=== PATIENT | male | born 1930 | race Caucasian/White ===

== ENCOUNTER → 2017-06-29 | Outpatient (CLI) | payer MEDICARE, OTHER ==
[2017-06-29 13:10] LABS: ALANINE AMINOTRANSFERASE 22 U/L (21-72); ALBUMIN 3.9 g/dL (3.5-5.0); ALKALINE PHOSPHATASE 71 U/L (38-126); ASPARTATE AMINO TRANSFERASE 18 U/L (17-59); BILIRUBIN,DIRECT 0.5 mg/dL (0.0-0.4); BILIRUBIN,TOTAL 1.5 mg/dL (0.2-1.3); CHOLESTEROL 156.68 mg/dL (0-200); Direct HDL 44 mg/dL (>40); TOTAL PROTEIN 6.9 g/dL (6.3-8.2); TRIGLYCERIDES 109 mg/dL (<150)
[2017-06-29 13:21] LABS: DIRECT LDL 94 mg/dL (<100)
== END ==
LOC: OD 11:46
PROVIDERS: ATTEND Specialist
DX: E13.9 Other specified diabetes mellitus without complications (principal); E78.4 Other hyperlipidemia; E66.9 Obesity, unspecified; I10 Essential (primary) hypertension; I25.2 Old myocardial infarction; I25.10 Atherosclerotic heart disease of native coronary artery without angina pectoris; R00.1 Bradycardia, unspecified; J44.9 Chronic obstructive pulmonary disease, unspecified; N42.9 Disorder of prostate, unspecified; M19.90 Unspecified osteoarthritis, unspecified site; R01.1 Cardiac murmur, unspecified; Z95.1 Presence of aortocoronary bypass graft; Z98.61 Coronary angioplasty status; Z79.899 Other long term (current) drug therapy
CPT/HCPCS: 36415; 80061; 80076; 83036

== ENCOUNTER 2017-08-09 09:54 | Day surgery (SDC) | payer MEDICARE, OTHER ==
[~2017-08-09 09:54] MED LIST: FENTANYL CITRATE INJ/PF 100 MCG/2 ML AMPUL ONE; MIDAZOLAM 2 MG/2 ML INJ ONE
[2017-08-09] MEDS ORDERED: POVIDONE-IODINE 5% OPH PREP SOLN 30 ML ONE (09:58)
[2017-08-09] MEDS ORDERED: BUPIVACAINE HCL 0.75% INJ/PF (7.5 MG/1 ML) 10 ML SDV ONE (09:58)
[2017-08-09] MEDS ORDERED: THROMBIN (BOVINE) TOPICAL 5000 UNIT VIAL ONE (09:58)
[2017-08-09] MEDS ORDERED: TETRACAINE HCL 0.5% OPH SOLN 2 ML ONE (09:58)
[2017-08-09] MEDS ORDERED: LIDOCAINE 1%/EPINEPHRINE INJ 20 ML VIAL ONE (10:03)
[2017-08-09] MEDS ORDERED: PROPOFOL INJ 200 MG/20 ML VIAL IV ONE (11:10)
[2017-08-09] MEDS: NEO/POLYMYX B SULF/DEXAMETH OPH OINTMENT 3.5 GM ONE ×2 (12:02→12:16)
--- NOTE | 2017-08-09 12:33 | [facility] OPERATIVE REPORT E ---
[facility] Operative Report NAME: KURT VILLARREAL AGE: 87Y DATE OF SURGERY: 08/09/2017 ROOM: PREOPERATIVE DIAGNOSIS: Bilateral upper eyelid dermatochalasis with visual field loss. POSTOPERATIVE DIAGNOSIS: Bilateral upper eyelid dermatochalasis with visual field loss. PROCEDURE PERFORMED: Bilateral upper eyelid blepharoplasty. SURGEON: KESHAV CHOWDHURY M.D. ANESTHESIA: Local with MAC. PROCEDURE: Patient was brought to the operating room and tetracaine drops were placed in the eyes. The eyes were sterilely prepped and draped in the usual manner. Under monitored anesthesia care the upper eyelid crease was marked approximately 7 mm superior to the upper lid margin and 0.3 mm forceps were used to estimate the excess upper eyelid skin to be excised on both upper lids. Local anesthesia was administered. This consisted of 3 mL of 1% Xylocaine with epinephrine equally administered in both upper lids and diffused with a Q-Tip. Attention was directed to the left upper lid where the elliptical piece of skin previously marked was removed. Hemostasis was obtained with bipolar cautery. The orbital septum was opened and retroseptal fat was grasped with a hemostat, cut and cauterized. Thrombin was placed on the incision. An identical procedure was performed on the right upper lid. Attention was redirected to the left upper lid where the skin margins were reapproximated with three interrupted 6-0 silk sutures, taking a deep bite of the fascia. Wound closure was completed with a running 6-0 nylon suture. This was accomplished on both upper lids. There was good hemostasis and full closure of the lids at the end of the surgery. Maxitrol ointment was placed at both upper lids. The patient tolerated the procedure well and was sent to the recovery room in good condition. DICTATING PHYSICIAN: KESHVA CHOWDHURY M.D. [id number] PHY#: [id number] ID: [id number] JOB#: [id number] ACCT: [id number] cc:KESHAV CHOWDUHRY M.D. >
--- NOTE | 2017-08-09 12:38 | [facility] DISCHARGE SUMMARY E ---
[facility] Discharge Summary NAME: KURT VILLARREAL AGE: 87Y ADMITTED: 08/09/2017 DISCHARGED: 08/09/2017 FINAL DIAGNOSIS: Bilateral upper eyelid dermatochalasis with visual field loss. HOSPITAL COURSE: The patient is an 87-year-old gentleman who underwent uneventful upper eyelid blepharoplasty. He will be discharged to home. He was instructed to keep the head of his bed up 45 degrees, to use the blepharoplasty ice pack 10 minutes out of every hour while awake for the first 24 hours, to use Maxitrol ointment twice a day, and to follow up in my office in 1 week. DICTATING PHYSICIAN: KESHAV CHOWDHURY M.D. [id number] PHY#: [id number] ID: [id number] JOB#: [id number] ACCT: [id number] cc:KESHAV CHOWDHURY M.D. >
== END 2017-08-09 13:12 | disposition home or self-care (01) ==
LOC: SC 09:54
PROVIDERS: ATTEND Ophthalmology
PROC: 080N0ZZ Alteration of Right Upper Eyelid, Open Approach (ICD-10-PCS; 2017-08-09)
PROC: 080P0ZZ Alteration of Left Upper Eyelid, Open Approach (ICD-10-PCS; principal; 2017-08-09 11:00)
DX: H02.831 Dermatochalasis of right upper eyelid (principal); H02.834 Dermatochalasis of left upper eyelid; H53.40 Unspecified visual field defects; E11.9 Type 2 diabetes mellitus without complications; E78.00 Pure hypercholesterolemia, unspecified; K21.9 Gastro-esophageal reflux disease without esophagitis; I10 Essential (primary) hypertension; Z87.891 Personal history of nicotine dependence; Z79.82 Long term (current) use of aspirin; Z79.84 Long term (current) use of oral hypoglycemic drugs; Z79.02 Long term (current) use of antithrombotics/antiplatelets; Z79.899 Other long term (current) drug therapy; I25.2 Old myocardial infarction; Z85.46 Personal history of malignant neoplasm of prostate
CPT/HCPCS: 82962; 15823; J2250; J3490 ×5; J3010; J2704; 103

== ENCOUNTER 2017-12-24 05:44 | Inpatient (IN) | payer MEDICARE, OTHER ==
[2017-12-24] MEDS ORDERED: FUROSEMIDE INJ/PF 40 MG/4 ML SDV IV ONE (05:51)
--- NOTE | 2017-12-24 05:56 | ER Document Report ---
Doctor's Note Notes: 12/24/17 05:54 I performed a quick triage evaluation the patient. Patient is an 87-year-old male presents with complaint of difficulty breathing. He woke up tonight with difficulty breathing. Called the months. When paramedics arrived his oxygen saturation was in the 80s and the place him on CPAP. He said he had some wheezing and some crackles. They give him some breathing treatments. Also given some nitro. Says chest tightness has improved. His breathing is improving with the CPAP machine. He does have history of coronary disease. He has had stents placed as well as coronary bypass surgery. Current bypass was performed approximately 7 years ago in [place]. His local manager quality systems is Dr. Ralph. On exam patient has crackles throughout his lung quintero. I suspect he most likely has pulmonary edema based on his lung auscultation. He is Mild distress at this time. Is able speak in 4 5 word sentences. He has been placed on BiPAP. I have ordered Lasix as well as Nitropaste as well as cardiac enzymes. Patient does have a left bundle branch block. I do not see a left bundle branch block is previous EKG however, his chest tightness is improved and currently he looks clinically stable and therefore we will wait for his cardiac enzymes to come back. Dictation of this chart was performed using voice recognition software; therefore, there may be some unintended grammatical errors.
[2017-12-24 06:05] LABS: ABSOLUTE BASOPHILS # (AUTO) 0.1 10^3/uL (0.0-0.2); ABSOLUTE EOSINOPHILS # (AUTO) 0.5 10^3/uL (0.0-0.6); ABSOLUTE LYMPHOCYTES (AUTO) 5.5 10^3/uL (0.5-4.7); ABSOLUTE MONOCYTES (AUTO) 1.2 10^3/uL (0.1-1.4); ABSOLUTE NEUT (AUTO) 9.8 10^3/uL (1.7-8.2); BASOPHILS % (AUTO) 0.8 % (0-2); HEMATOCRIT 46.5 % (37.9-51.0); HEMOGLOBIN 15.3 g/dL (13.5-17.0); MEAN CORPUSCULAR HEMOGLOBIN 30.6 pg (27.0-33.4); MEAN CORPUSCULAR VOLUME 93 fl (80-97); MONOCYTES % (AUTO) 6.9 % (3-13); PLATELET COUNT 346 10^3/uL (150-450); RED BLOOD COUNT 5.01 10^6/uL (4.35-5.55); RED CELL DISTRIBUTION WIDTH 13.6 % (11.5-14.0); SEGMENTED NEUTROPHILS % (AUTO) 57.3 % (42-78); TOTAL CELLS COUNTED % (AUTO) 100 %; WHITE BLOOD COUNT 17.1 10^3/uL (4.0-10.5)
[2017-12-24] MEDS ORDERED: NITROGLYCERIN 2% OINTMENT 1 GM PACKET TP ONE (06:16)
[2017-12-24] MEDS ORDERED: ASPIRIN 325 MG TABLET PO ONE (06:17)
[2017-12-24 06:34] LABS: CREATINE KINASE MB 1.97 ng/mL (<4.55); TROPONIN I 0.029 ng/mL
--- NOTE | 2017-12-24 06:43 | ER Document Report ---
ED Cardiac - General Chief Complaint: Shortness Of Breath Stated Complaint: DIFFICULTY BREATHING Time Seen by Provider: 12/24/17 05:51 Notes: The patient is a 87 yo male, PMHx CAD w/ stent placement, presents with 2 hours of bilateral chest pressure and increased shortness of breath that started at 4 AM today. Patient was diaphoretic when EMS arrived. He received 2 sublingual nitro by EMS and placed on CPAP with resolution of his chest pain and improvement of his respiratory status. [facility] and he is no longer having any shortness of breath. His logistics analytics manager is Dr. Mckeon. Patient denies leg swelling, hemoptysis, fevers, back pain, nausea, vomiting, abdominal pain, numbness, tingling, cough or headache. TRAVEL OUTSIDE OF THE [place] IN LAST 30 DAYS: No - Related Data Allergies/Adverse Reactions: hydrocodone [Hydrocodone] Allergy (Intermediate, Verified 02/06/16 07:22) n/v, hives itching oxycodone HCl [From Percocet] Allergy (Intermediate, Verified 02/06/16 07:22) hives itching, n/v Past Medical History - General Information source: Patient, Emergency Med Personnel - Social History Smoking Status: Unknown if Ever Smoked Family History: Reviewed & Not Pertinent - Past Medical History Cardiac Medical History: Reports: Hx Coronary Artery Disease, Hx Heart Attack - 1996, Hx Hypercholesterolemia - meds x 15 years, Hx Hypertension - meds x 15 years Denies: Hx Atrial Fibrillation, Hx Congestive Heart Failure, Hx Peripheral Vascular Disease, Hx Pulmonary Embolism, Hx Heart Murmur Pulmonary Medical History: Reports: Hx COPD, Hx Pneumonia Denies: Hx Asthma, Hx Bronchitis, Hx Respiratory Failure, Hx Sleep Apnea, Hx Tuberculosis Neurological Medical History: Denies: Hx Cerebrovascular Accident, Hx Seizures Endocrine Medical History: Denies: Hx Graves' Disease, Hx Hyperthyroidism, Hx Hypothyroidism Renal/ Medical History: Denies: Hx Benign Prostatic Hyperplasia, Hx End Stage Renal Disease, Hx Kidney Stones, Hx Peritoneal Dialysis Malignancy Medical History: Denies Hx Leukemia, Denies Hx Lung Cancer GI Medical History: Reports: Hx Gastroesophageal Reflux Disease - meds x 10+ years. Denies: Hx Crohn's Disease, Hx Hepatitis, Hx Hiatal Hernia, Hx Irritable Bowel, Hx Liver Failure, Hx Pancreatitis, Hx Ulcer Musculoskeltal Medical History: Reports Hx Arthritis, Denies Hx Fibromyalgia, Denies Hx Multiple Sclerosis, Denies Hx Muscular Dystrophy Psychiatric Medical History: Denies: Hx Bipolar Disorder, Hx Dementia, Hx Depression, Hx Post Traumatic Stress Disorder, Hx Schizophrenia Traumatic Medical History: Denies: Hx Fractures Infectious Medical History: Denies: Hx Hepatitis, Hx HIV Past Surgical History: Reports: Hx Appendectomy, Hx Coronary Artery Bypass Graft - 1996, 2 vessel, Hx Open Heart Surgery - stents CABG. Denies: Hx Bowel Surgery, Hx Cholecystectomy, Hx Colostomy, Hx Gastric Bypass Surgery, Hx Herniorrhaphy, Hx Pacemaker, Hx Tonsillectomy - Immunizations Hx Diphtheria, Pertussis, Tetanus Vaccination: No Hx Pneumococcal Vaccination: 10/10/13 Review of Systems - Review of Systems Notes: REVIEW OF SYSTEMS: CONSTITUTIONAL: -fevers, -chills EENT: -eye pain, -difficulty swallowing, -nasal congestion CARDIOVASCULAR: +chest pain, -syncope. RESPIRATORY: -cough, +SOB GASTROINTESTINAL: -abdominal pain, -nausea, -vomiting, -diarrhea GENITOURINARY: -dysuria, -hematuria MUSCULOSKELETAL: -back pain, -neck pain SKIN: -rash or skin lesions. HEMATOLOGIC: -easy bruising or bleeding. LYMPHATIC: -swollen, enlarged glands. NEUROLOGICAL: -altered mental status or loss of consciousness, -headache, - neurologic symptoms PSYCHIATRIC: -anxiety, -depression. ALL OTHER SYSTEMS REVIEWED AND NEGATIVE. Physical Exam - Vital signs Vitals: Resp Pulse Ox 28 H 99 12/24/17 05:45 12/24/17 05:45 - Notes Notes: PHYSICAL EXAMINATION: GENERAL: In no acute distress. HEAD: Atraumatic, normocephalic. EYES: Pupils equal round and reactive to light, extraocular movements intact, sclera anicteric, conjunctiva are normal. ENT: nares patent, oropharynx clear without exudates. Moist mucous membranes. NECK: Normal range of motion, supple without lymphadenopathy LUNGS: B/L crackles in bases of B/L lungs. No tachypnea on BiPap. Coarse breath sounds diffusely. HEART: Tachycardia, regular rhythm. ABDOMEN: Soft, nontender, normoactive bowel sounds. No guarding, no rebound. No masses appreciated. EXTREMITIES: Normal range of motion, no pitting or edema. No cyanosis. NEUROLOGICAL: Cranial nerves grossly intact. Normal speech. Normal sensory and motor exams. PSYCH: Normal mood, normal affect. SKIN: Warm, Dry, normal turgor, no rashes or lesions noted. Course - Re-evaluation Re-evalutation: Patient seen immediately on arrival due to respiratory distress, diaphoresis and chest pain that resolved after 2 nitro. He was placed on BiPAP and his breathing improved greatly. He has evidence of bilateral pneumonia or pulmonary edema with a leukocytosis. No recent hospitalizations, so CAP antibiotics started. Pt's EKG shows a IVCD/LBBB without Scarbossa criteria and his first troponin is negative. Repeat EKG shows improvement of his tachycardia and no STEMI. HEART score is 6 (1 for concerning story, 1 for EKG changes, 2 for age, 2 for risk factors, 0 for troponin). Pt was transitioned from BiPap to 2L nasal cannula and his oxygenation remained normal. He became slightly hypotensive to 89/65 (MAP 73) after nitro and IV Lasix and he was provided with gentle hydration. Suspect he may also have a component of CHF that has not been diagnosed due to the elevated pro-BNP and rales on exam. Pt has a history of NIDDM and his BG is in the 400's, but he does not have an anion gap. His last A1C was 12.0%, so suspect that the hyperglycemia is chronic in nature. His PMD is Dr. Mccoy and his logistics analytics manager is Dr. Ralph. Pt requires admission for further evaluation and treatment of his bilateral pneumonia and chest pain. 12/24/17 09:[address] Thomas (Hospitalist) and will admit patient as Inpatient to [facility]. - Vital Signs Vital signs: Temp Pulse Resp BP Pulse Ox 97.4 F 22 H 141/83 H 94 12/24/17 05:46 12/24/17 13:11 12/24/17 13:11 12/24/17 13:11 - Laboratory Result Diagrams: 12/24/17 05:55 12/24/17 08:08 Laboratory results interpreted by me: 12/24/17 12/24/17 12/24/17 05:55 05:55 08:08 WBC 17.1 H Absolute Neutrophils 9.8 H Absolute Lymphocytes 5.5 H VBG pH BUN 23 H Glucose 465 H* Lactic Acid Direct Bilirubin 0.5 H Creatine Kinase 248 H NT-Pro-B Natriuret Pep 1210 H 12/24/17 12/24/17 08:08 08:08 WBC Absolute Neutrophils Absolute Lymphocytes VBG pH 7.29 L BUN Glucose Lactic Acid 2.2 H Direct Bilirubin Creatine Kinase NT-Pro-B Natriuret Pep - Diagnostic Test Radiology reviewed: Image reviewed, Reports reviewed Radiology results interpreted by me: CXR: Moderate bilateral lower lobar pneumonia/atelectasis. Recommend CR/CT surveillance including at 7-12 weeks following initiation of clinically warranted therapy. - EKG Interpretation by Me Rate: Tachycardia [place]/QRS: IVCD Voltage: Consistant with LVH When compared to previous EKG there are: No significant change Critical Care Note - Critical Care Note Total time excluding time spent on procedures (mins): 35 Discharge - Discharge Clinical Impression: Bilateral pneumonia Qualifiers: Pneumonia type: due to unspecified organism Lung location: lower lobe of lung Qualified Code(s): J18.1 - Lobar pneumonia, unspecified organism Chest pain Qualifiers: Chest pain type: unspecified Qualified Code(s): R07.9 - Chest pain, unspecified Respiratory failure Qualifiers: Chronicity: acute Respiratory failure complication: hypoxia Qualified Code(s): J96.01 - Acute respiratory failure with hypoxia Sepsis Qualifiers: Sepsis type: sepsis due to unspecified organism Qualified Code(s): A41.9 - Sepsis, unspecified organism Pulmonary edema Qualifiers: Chronicity: acute Qualified Code(s): J81.0 - Acute pulmonary edema Condition: Stable Disposition: ADMITTED INPATIENT Admitting Provider: Aury Thomas Unit Admitted: Telemetry
--- NOTE | 2017-12-24 07:11 | RADIOLOGY REPORT (SQ) ---
EXAM DESCRIPTION: CHEST SINGLE VIEW CLINICAL HISTORY: 87 years Male, diffiuclty breathing COMPARISON: 07/26/2016 NUMBER OF VIEWS/TECHNIQUE: 1/AP LIMITATIONS: None. FINDINGS: Moderate mixed patchy and streaky opacity/layered effusion of both lower lung quintero, mild interstitial markings, mild enlargement of the cardiac silhouette, median sternotomy, and intact bony thorax. IMPRESSION: Moderate bilateral lower lobar pneumonia/atelectasis. Recommend CR/CT surveillance including at 7-12 weeks following initiation of clinically warranted therapy.
[2017-12-24] MEDS ORDERED: AZITHROMYCIN INJ 500 MG VIAL IV ONE (07:17)
[2017-12-24] MEDS ORDERED: CEFTRIAXONE INJ 1000 MG VIAL IV ONE (07:17)
[2017-12-24 08:39] LABS: VENOUS BLOOD BASE EXCESS -3.3 mmol/L; VENOUS BLOOD HCO3 23.7 mmol/L (20-32); VENOUS BLOOD PH 7.29 (7.30-7.42)
[2017-12-24 08:49] LABS: ALANINE AMINOTRANSFERASE 38 U/L (21-72); ALBUMIN 4.2 g/dL (3.5-5.0); ALKALINE PHOSPHATASE 73 U/L (38-126); ANION GAP 15 (5-19); ASPARTATE AMINO TRANSFERASE 54 U/L (17-59); BILIRUBIN,DIRECT 0.5 mg/dL (0.0-0.4); BILIRUBIN,TOTAL 0.8 mg/dL (0.2-1.3); BLOOD UREA NITROGEN 23 mg/dL (7-20); CALCIUM 9.9 mg/dL (8.4-10.2); CARBON DIOXIDE 22 mmol/L (22-30); CHLORIDE 102 mmol/L (98-107); CREATINE KINASE 248 U/L (55-170); POTASSIUM 4.6 mmol/L (3.6-5.0); SODIUM 139.1 mmol/L (137-145); TOTAL PROTEIN 7.4 g/dL (6.3-8.2)
[2017-12-24 08:58] LABS: GLUCOSE 465 mg/dL (75-110)
[2017-12-24] MEDS ORDERED: NORMAL SALINE 1000 ML 1,000 ML IV ONE (09:05)
--- NOTE | 2017-12-24 09:52 | EKG REPORT ---
SEVERITY:- ABNORMAL ECG - SINUS OR ECTOPIC ATRIAL TACHYCARDIA NONSPECIFIC INTRAVENTRICULAR CONDUCTION DELAY PROBABLE LEFT VENTRICULAR HYPERTROPHY ANTERIOR Q WAVES, POSSIBLY DUE TO LVH : Confirmed by: Bennett Mendiola MD 24-Dec-2017 09:51:59
--- NOTE | 2017-12-24 09:52 | EKG REPORT ---
SEVERITY:- ABNORMAL ECG - SINUS RHYTHM NONSPECIFIC INTRAVENTRICULAR CONDUCTION DELAY PROBABLE LVH WITH SECONDARY REPOL ABNRM ANTERIOR Q WAVES, POSSIBLY DUE TO LVH : Confirmed by: Bennett Mendiola MD 24-Dec-2017 09:51:36
[2017-12-24] MEDS ORDERED: CLOPIDOGREL BISULFATE 300 MG TABLET PO SCH (10:00)
[2017-12-24] MEDS ORDERED: PROMETHAZINE HCL INJ 25 MG/1 ML VIAL IV PRN (10:13)
[2017-12-24] MEDS ORDERED: ACETAMINOPHEN 325 MG TABLET PO PRN (10:13)
[2017-12-24] MEDS ORDERED: ONDANSETRON HCL INJ/PF 4 MG/2 ML SDV IV PRN (10:13)
[2017-12-24] MEDS ORDERED: IPRATROPIUM/ALBUTEROL 0.5-2.5 MG/3 ML AMPUL NEB PRN (10:13)
--- NOTE | 2017-12-24 11:48 | RADIOLOGY REPORT (SQ) ---
EXAM DESCRIPTION: CT CHEST WITH COMPLETED DATE/TIME: 12/24/2017 11:04 am REASON FOR STUDY: Hypoxemia. R/O PE COMPARISON: None. TECHNIQUE: CT scan of the chest performed using helical scanning technique with dynamic intravenous contrast injection. Images reviewed with lung, soft tissue and bone windows. Reconstructed coronal and sagittal MPR images reviewed. All images stored on PACS. All CT scanners at this facility use dose modulation, iterative reconstruction, and/or weight based d osing when appropriate to reduce radiation dose to as low as reasonably achievable (ALARA). [facility]: Dose Right [facility]: CareDose [facility]: Dose Right [facility]: Teradose 4D [facility]: [employer] CONTRAST TYPE AND DOSE: contrast/concentration: Isovue 370.00 mg/ml; Total Contrast Delivered: 80.0 ml; Total Saline Delivered: 55.0 ml RENAL FUNCTION: BUN 23 creatinine 1.1 RADIATION DOSE: CT Rad equipment meets quality standard of care and radiation dose reduction techniq ues were employed. CTDIvol: 19.5 mGy. DLP: 809 mGy-cm. . LIMITATIONS: Patient motion. FINDINGS: LUNGS AND PLEURA: Diffuse interstitial edema. Small bilateral pleural effusions. HILAR AND MEDIASTINAL STRUCTURES: No identified masses or abnormal nodes. HEART AND VASCULAR STRUCTURES: Cardiomegaly. No pericardial effusion. No filling defect in the cent ral pulmonary arteries. HARDWARE: None in the chest. UPPER ABDOMEN: Gallstones. Chronic pancreatitis. THYROID AND OTHER SOFT TISSUES: No masses. No adenopathy. BONES: No significant finding. OTHER: No other significant finding. IMPRESSION: Congestive heart failure. TECHNICAL DOCUMENTATION: JOB ID: [id number] Quality ID # [id number]: Final reports with documentation of one or more dose reduction techniques (e.g., Au tomated exposure control, adjustment of the mA and/or kV according to patient size, use of iterative reconstruction technique) 2010 [employer]- All Rights Reserved Reading location - IP/workstation name: [email or web address]
[2017-12-24] MEDS ORDERED: DEXTROSE 40% GEL 15 GM TUBE PO PRN ×2 (13:10)
[2017-12-24] MEDS ORDERED: DEXTROSE 50%-WATER 25 GM/50 ML DISP.SYRIN IV PRN ×2 (13:10)
[2017-12-24] MEDS ORDERED: INSULIN LISPRO 100 UNIT/ML 3 ML VIAL SUBCUT PRN (13:10)
[2017-12-24] MEDS ORDERED: GLUCAGON,HUMAN RECOMB 1 MG INJ IM PRN (13:10)
--- NOTE | 2017-12-24 15:46 | PDOC CONSULTATION ---
Consultation Consult Date: 12/24/17 Consult reason:: Shortness of breath with elevated cardiac biomarkers History of Present Illness Admission Date/PCP: 12/24/17 10:06 MAJOR CUMMINGS MD History of Present Illness: KURT VILLARREAL is a 87 year old male with past medical history of coronary artery disease status post coronary artery bypass grafting around 1996 per patient, history of PCI around 3 years after her last bypass, diabetes mellitus , hypertension, morbid obesity comes in with complaints of sudden onset shortness of breath that started early this morning associated with dizziness. Patient claims that he got sweaty and that is when his called EMS and he was brought into the ER. In the ER he had initial set of biomarkers negative and subsequently a second set of cardiac enzymes was positive. He also had a CAT scan of his chest done which did not reveal any pulmonary embolism. Patient seen at bedside and he denies any chest pain and claims that his breathing is much better now after he got some Lasix. He claims that he is fairly active at his age and does not usually get any chest pain or acute shortness of breath. He has not had any nitroglycerin for many years. He is and lives with his . He used to smoke before but quit many years ago. He drinks alcohol occasionally. He denies history of coronary artery disease in his parents. In the past he was following with Dr. Mckeon but has not seen him in quite a while per patient. Past Medical History Cardiac Medical History: Reports: Coronary Artery Disease, Myocardial Infarction - 1996, Hyperlipidema - meds x 15 years, Hypertension - meds x 15 years Denies: Atrial Fibrillation, Congestive Heart Failure, Peripheral Vascular Disease, Pulmonary Embolism, Heart Murmur Pulmonary Medical History: Reports: Chronic Obstructive Pulmonary Disease (COPD) Denies: Asthma, Bronchitis, Respiratory Failure, Sleep Apnea, Tuberculosis Neurological Medical History: Denies: Seizures Endocrine Medical History: Reports: Diabetes Mellitus Type 1, Obesity Denies: Hyperthyroidism, Hypothyroidism Renal/ Medical History: Denies: End Stage Renal Disease Malignancy Medical History: Denies: Breast Cancer, Cervical Cancer, Leukemia, Lung Cancer, Ovarian Cancer GI Medical History: Reports: Gastroesophageal Reflux Disease - meds x 10+ years Denies: Crohn's Disease, Hepatitis, Hiatal Hernia Musculoskeltal Medical History: Reports: Arthritis Denies: Fibromyalgia Psychiatric Medical History: Denies: Bipolar Disorder, Dementia, Depression, Post Traumatic Stress Disorder Hematology: Denies: Anemia, Hemophilia, Sickle Cell Disease Infectious Medical History: Denies: HIV Past Surgical History Past Surgical History: Reports: Appendectomy, Cardiac Catheterization, Coronary Artery Bypass Graft - 1996, 2 vessel Denies: Cholecystectomy, Colostomy, Gastric Bypass Surgery, Herniorrhaphy, Pacemaker, Tonsillectomy Social History Lives with: Spouse/Significant other Smoking Status: Former Smoker Frequency of Alcohol Use: Occasional Hx Recreational Drug Use: No Hx Prescription Drug Abuse: No Family History Family History: Reviewed & Not Pertinent Parental Family History Reviewed: Yes Children Family History Reviewed: Yes Sibling(s) Family History Reviewed.: Yes Medication/Allergy Home Medications: Aspirin [Aspirin EC] 81 mg PO DAILY 12/24/17 Clopidogrel Bisulfate [Plavix 75 mg Tablet] 75 mg PO DAILY 12/24/17 Fexofenadine HCl [Leandra] 180 mg PO DAILY 12/24/17 Glipizide [Glucotrol Xl] 10 mg PO DAILY 12/24/17 Metformin HCl [Metformin HCl ER] 1,000 mg PO DAILY 12/24/17 Pantoprazole Sodium [Protonix] 40 mg PO DAILY 12/24/17 Simvastatin 10 mg PO QHS 12/24/17 Telmisartan [Micardis 40 mg Tablet] 40 mg PO DAILY 12/24/17 Allergies/Adverse Reactions: hydrocodone [Hydrocodone] Allergy (Intermediate, Verified 02/06/16 07:22) n/v, hives itching oxycodone HCl [From Percocet] Allergy (Intermediate, Verified 02/06/16 07:22) hives itching, n/v Review of Systems Cardiovascular: PRESENT: orthropnea Respiratory: PRESENT: dyspnea Physical Exam Vital Signs: Temp Pulse Resp BP Pulse Ox 97.4 F 22 H 141/83 H 94 12/24/17 05:46 12/24/17 13:11 12/24/17 13:11 12/24/17 13:11 Intake & Output 12/23/17 12/24/17 12/25/17 06:59 06:59 06:59 Weight 104.326 kg General appearance: PRESENT: other - Here is a morbidly obese patient in no acute respiratory distress at this time. Respiratory exam: PRESENT: other - Bilateral air entry heard with no wheezing. Decreased entry at lung bases. GI/Abdominal exam: PRESENT: other - Obese abdomen. Results Laboratory Results: 12/24/17 11:58 Lactic Acid 2.5 H 12/24/17 12/24/17 11:58 11:58 Creatine Kinase 500 H Troponin I 8.030 Impressions: Chest CT 12/24/17 00:00 IMPRESSION: Congestive heart failure. Chest X-Ray 12/24/17 05:52 IMPRESSION: Moderate bilateral lower lobar pneumonia/atelectasis. Recommend CR/CT surveillance including at 7-12 weeks following initiation of clinically warranted therapy. Assessment & Plan - Diagnosis (5) Uncontrolled diabetes mellitus Qualifiers: Diabetes mellitus type: other specified (including ANIA) Is this a current diagnosis for this admission?: Yes - Notes Notes: Plan of CARE Patient with previous history of coronary artery disease status post bypass grafting came in with likely flash pulmonary edema which has responded to diuretic therapy. Patient's EKG and biomarkers reviewed. Will treat as acute non-ST elevation AR and will recommend loading patient with Plavix in addition to aspirin, high intensity statin, nitrate and beta-jamal as tolerated by his blood pressure. Recommend systemic anticoagulation with therapeutic Lovenox/ heparin. Patient will need better control of his diabetes. Case discussed with expediter clerk Dr. Dickerson who has graciously accepted the patient for transfer to [facility] for consideration of coronary angiography. Patient and his daughter educated about plan of care and they are agreeable with transfer to [facility] for further care. Patient wants to follow with us in the outpatient clinic in a few weeks after his discharge from [facility]. - Time Time Spent: 30 to 50 Minutes
--- NOTE | 2017-12-24 15:50 | HISTORY AND PHYSICAL E ---
History and Physical NAME: KURT VILLARREAL : 1930 AGE: 87Y ADMITTED: 12/24/2017 ROOM: ED22 CHIEF COMPLAINT: Shortness of breath. HISTORY OF PRESENT ILLNESS: The patient is an 87-year-old male who had a past medical history of diabetes and hypertension. The patient came to the emergency room. He had a history of diabetes, hypertension, congestive heart failure, and he follows with . He also had CABG done in the past. The patient came to the emergency room today complaining of shortness of breath, cough, fever, and he had chest pain. The patient had a chest x-ray in the emergency room which showed bilateral infiltrates consistent with bilateral pneumonia as well as also congestive heart failure. He received Lasix in the emergency room and as well as also IV fluids. His blood pressure was low. When the patient was seen the first time by ambulance, his saturation was in the 80s and he was placed on BiPAP. He feels much better. He came here, he received Lasix as well as breathing treatment, and he has improved. Now, he is on 6 L and saturating in the mid 90s, and lying very comfortably. He denies any nausea or vomiting or edema. REVIEW OF SYSTEMS: Twelve systems were reviewed and are unremarkable except for history of present illness. PAST MEDICAL HISTORY: Diabetes, hypertension, coronary artery disease status post CABG, hyperlipidemia. PAST SURGICAL HISTORY: CABG. ALLERGIES: SHE IS ALLERGIC TO HYDROCODONE AND OXYCODONE. MEDICATIONS: Currently, he is on: 1. Azithromycin. 2. Ceftriaxone. 3. Colace. 4. Lorazepam. FAMILY HISTORY: Unremarkable. SOCIAL HISTORY: Nonsmoker, nondrinker. Lives at home. PHYSICAL EXAM: GENERAL: Patient is lying in bed, not in distress. VITAL SIGNS: His heart rate is 95, respiratory rate 24, blood pressure 124/79, saturation 97% on 6 L. Afebrile. HEAD: Head normocephalic and atraumatic. EYES: Pupils round, reactive to the light and accommodation bilaterally. Extraocular movements intact. NOSE: No discharge from the nose. EARS: No discharge from the ears. MUCOUS MEMBRANES: Intact. NECK: Supple. No increased JVD, no thyromegaly, no lymphadenopathy. CARDIOVASCULAR: Normal S1, S2. Regular rate and rhythm. RESPIRATORY: Bilateral wheezing and crackles. ABDOMEN: Obese. Bowel sounds active. No rebound, no guarding, no organomegaly. MUSCULOSKELETAL: With +1 edema. NEUROLOGICAL EXAM: Awake, alert. SKIN: There is no rash. HEMOLYTIC/LYMPHOCYTIC: No anemia. No easy bruising. VASCULAR: Peripheral bulges palpable bilaterally. LABORATORY DATA: White blood count 17, hemoglobin is 15.3. Blood gases, pH is 7.29, pCO2 is 50. Sodium 139, potassium 4.6, creatinine is 1.0, blood glucose 465. Chest x-ray: Bilateral infiltrates consistent with bilateral pneumonia. ASSESSMENT: 1. Bilateral pneumonia. 2. Acute on chronic hypoxic respiratory failure, possible chronic obstructive pulmonary disease. 3. Congestive heart failure. 4. Coronary artery disease status post coronary artery bypass grafting, chest pain. 5. Diabetes, poorly controlled. Blood sugar is around 465. PLAN: 1. Will admit the patient to Telemetry. 2. Diet: Cardiac diet. 3. Activity: Bed rest. 4. Medications: Antibiotics ceftriaxone and azithromycin. Nebulizer with DuoNeb. 5. Deep vein thrombosis prophylaxis. 6. Gastrointestinal prophylaxis. 7. Serial cardiac enzymes. 8. Considering CT scan with IV contrast to rule out pulmonary embolus. 9. Will need also echocardiogram he had recently with Dr. Ralph. Will contact Dr. Ralph on Tuesday. CODE STATUS: Full code. DICTATING PHYSICIAN: RENEE MARTINEZ M.D. [id number] PHY#: [id number] ID: [id number] JOB#: [id number] ACCT: [id number] cc:LYLY MEAD M.D. > WILLIAM
--- NOTE | 2017-12-24 16:24 | EKG REPORT ---
SEVERITY:- ABNORMAL ECG - SINUS RHYTHM PROBABLE LEFT ATRIAL ABNORMALITY NONSPECIFIC INTRAVENTRICULAR CONDUCTION DELAY MINIMAL ST DEPRESSION, LATERAL LEADS : Confirmed by: Bennett Mendiola MD 24-Dec-2017 16:23:59
[2017-12-24 16:53] VITALS: BP 101/62
[2017-12-24] MEDS ORDERED: LANSOPRAZOLE 15 MG TAB.RAP.DR PO SCH (17:00)
[2017-12-24] MEDS ORDERED: DOCUSATE SODIUM 100 MG/10 ML UDC PO SCH (18:00)
[2017-12-24] MEDS ORDERED: METOPROLOL TARTRATE 25 MG TABLET PO SCH (22:00)
[2017-12-24] MEDS ORDERED: ZOLPIDEM TARTRATE 5 MG TABLET PO SCH (22:00)
[2017-12-25] MEDS ORDERED: CEFTRIAXONE SODIUM 1,500 MG in NORMAL SALINE 100 ML IV SCH (10:00)
[2017-12-25] MEDS ORDERED: CEFTRIAXONE SODIUM 1,500 MG in DEXTROSE 5%-WATER 100 ML IV SCH (10:00)
[2017-12-25] MEDS ORDERED: AZITHROMYCIN INJ 500 MG VIAL IV ONE (10:21)
--- NOTE | 2017-12-26 15:11 | TRANSFER SUMMARY E ---
Transfer Summary NAME: KURT VILLARREAL : 1930 AGE: 87Y ADMITTED: 12/24/2017 TRANSFERRED: 12/24/2017 ADMISSION DIAGNOSES: 1. Shortness of breath, rule out NH. 2. Significant history of coronary artery disease status post stent placement. 3. Hypertension. 4. Congestive heart failure. 5. Diabetes. DISCHARGE DIAGNOSES: 1. Non-stemi. 2. Flash pulmonary edema. 3. Congestive heart failure. 4. Hypertension. 5. Diabetes. 6. Significant coronary artery disease status post stent placement. IMAGING: CT scan of the chest showed pulmonary edema. BRIEF HOSPITAL COURSE: The patient is an 87-year-old male who has a past medical history significant for coronary artery disease status post multiple stent placements, hypertension, diabetes. The patient came to the emergency room with a chief complaint of shortness of breath. He had shortness of breath and bilateral chest pressure, and the patient came to the emergency room. In the emergency room, he was hypoxic. His saturation in the 80's. The patient was placed on BiPAP. He received Lasix 40 mg IV in ER. Also, initially, he got IV fluids. After the patient was evaluated, he was feeling well. The patient came to the emergency room with a chief complaint of chest pain associated with shortness of breath. The initial set of cardiac enzymes were unremarkable. However, the repeated cardiac enzyme is increased to 8. He had echo recently in Dr. Mckeon's office. Unfortunately, we do not have that in our records here at the hospital. No echo was done. EKG was unremarkable. The patient and Lasix, as I mentioned. His symptoms resolved. He was titrated from BiPAP to 6 L of oxygen and tolerated it very well and he had mild shortness of breath. Because of elevated troponin, Cardiology was consulted and he was seen by Dr. Greenwood and recommended urgent echo and transfer him to [facility]. Dr. Greenwood recommended loading him with Plavix, beta jamal, and Lovenox full dose, and transfer him to [facility] for further intervention. He may need a cardiac catheterization. Unfortunately, it cannot be done today, because the patient had a CT scan of the chest with IV contrast, which showed pulmonary edema. There is no PE. Currently, the patient transfer being arranged to [facility]. Accepting physician is lead applier, Dr. Dickerson. PHYSICAL EXAMINATION UPON TRANSFER: GENERAL: The patient is lying in bed, comfortable, not in distress. VITAL SIGNS: Blood pressure is 141/83, respiratory rate 22, heart rate 104. HEENT: Normocephalic, atraumatic. Pupils are round and reactive to light and accommodation bilaterally. Extraocular movements intact. Ears: Tympanic membranes intact bilaterally. No discharge from the ears. No discharge from the nose. NECK: Supple. No increased JVD. No thyromegaly. No lymphadenopathy. CARDIOVASCULAR: Normal S1 and S2. Regular rate and rhythm. No murmur. No gallop. RESPIRATORY: Bilateral crackles. ABDOMEN: Soft. MUSCULOSKELETAL: With +1 edema. DIAGNOSTIC DATA: Labs: White blood count was 17, hemoglobin was 1.0. Blood glucose was 465. Chest x-ray: Possible bilateral lower lobe pneumonia. CT scan showed pulmonary edema. TRANSFER ORDER: Transfer patient to [facility] under service of Dr. Dickerson. MEDICATIONS: Currently, the patient is on: 1. Plavix dose 600 mg p.o. daily. 2. Lovenox full dose mg/kg twice a day. 3. Ceftriaxone 1.5 grams IV q. 24 hours. 4. Azithromycin. 5. Metoprolol 12.5 mg twice a day. 6. Lansoprazole. 7. Insulin. 8. . We will continue his home medications: 1. Micardis. 2. Aspirin. 3. He is also on Glucotrol XL. Will hold metformin. DIET: Cardiac diet. ACTIVITY: Bed rest. DICTATING PHYSICIAN: RENEE MARTINEZ M.D. [id number] PHY#: [id number] ID: [id number] JOB#: [id number] ACCT: [id number] cc:RENEE MARTINEZ M.D. >
== END 2017-12-24 18:00 | disposition short-term general hospital (02) | DRG 280 ==
LOC: ER 05:44 → EH 10:06
PROVIDERS: ADMIT Family Medicine; ATTEND Family Medicine
PROC: 5A09557 Assistance with Respiratory Ventilation, Greater than 96 Consecutive Hours, Continuous Positive Airway Pressure (ICD-10-PCS; principal; 2017-12-24)
DX: I21.4 Non-ST elevation (NSTEMI) myocardial infarction (principal); J96.21 Acute and chronic respiratory failure with hypoxia; E08.65 Diabetes mellitus due to underlying condition with hyperglycemia; I11.0 Hypertensive heart disease with heart failure; I50.9 Heart failure, unspecified; E66.01 Morbid (severe) obesity due to excess calories; E78.5 Hyperlipidemia, unspecified; J44.9 Chronic obstructive pulmonary disease, unspecified; I25.10 Atherosclerotic heart disease of native coronary artery without angina pectoris; Z95.1 Presence of aortocoronary bypass graft; Z68.31 Body mass index [BMI] 31.0-31.9, adult; Z87.891 Personal history of nicotine dependence; I25.2 Old myocardial infarction; Z79.84 Long term (current) use of oral hypoglycemic drugs; Z88.5 Allergy status to narcotic agent; Z79.82 Long term (current) use of aspirin
CPT/HCPCS: 36415; 71045; 71260; 80053; 82550; 82553; 82803; 82962; 83605; 83880; 84484; 85025; 87040; 93005; 93010; 94660; 96361; 96365; 96368; 96375; 99291; J0456; J0696; J1940; J3490; J7030

== ENCOUNTER → 2018-03-08 | Outpatient (CLI) | payer MEDICARE, OTHER ==
--- NOTE | 2018-03-08 16:56 | XCELERA REPORT ---
[address] [address] Transthoracic Echocardiogram Report Name: KURT VILLARREAL Age: 87 yrs Gender: Male : 1930 Patient Status: Outpatient Patient Location: Study Date: 03/08/2018 10:34 AM Height: 69 in Weight: 213 lb BSA: 2.1 m2 Procedure: A two-dimensional transthoracic echocardiogram with color flow and Doppler was performed. The study was technically difficult with many images being suboptimal in quality. Reason For Study: MURMUR History: MURMUR. Ordering Physician: SWATHI SARABIA Performed By: Haydee Baeza Interpretation Summary The left ventricle is moderately dilated. There is normal left ventricular wall thickness. LV EF is 35% Left ventricular systolic function is moderately reduced. The inferior and posterior wall akiinetic.The anterior wall not seen in apical 2 chamber views.The mid anterior wall and the rest of the LV augustin are moderately hypokinetic The overall LVEF is 35%. The right ventricle is not well visualized secondary to technical limitations The left atrium is mildly dilated. There is no evidence of mitral valve prolapse. There is no vegetation seen on the mitral valve. There is no mitral valve stenosis. There is a moderate amount of mitral regurgitation There is no aortic valve stenosis No aortic regurgitation is present. There is no tricuspid stenosis. There is a trace amount of tricuspid regurgitation Right ventricular systolic pressure is normal. RVSP IS 23 MM OF hG WITH RA MEAN OF 10. There is no pulmonic valvular stenosis. The aortic root is normal size. There is no pericardial effusion. MMode/2D Measurements & Calculations RVDd: 2.6 cm LVIDd: 6.2 cm FS: 7.0 % EPSS: 2.0 cm IVSd: 1.1 cm LVIDs: 5.8 cm EDV(Teich): 195.9 ml LVPWd: 1.1 cm ESV(Teich): 166.0 ml EF(Teich): 15.3 % Ao root diam: 3.4 cm LVOT diam: 2.6 cm Ao root area: 9.3 cm2 LVOT area: 5.1 cm2 Doppler Measurements & Calculations MV E max amrita: MV dec slope: Ao V2 max: LV V1 max P.8 cm/sec 454.4 cm/sec2 171.6 cm/sec 2.1 mmHg MV A max amrita: MV dec time: Ao max PG: LV V1 max: 85.9 cm/sec 0.21 sec 11.8 mmHg 72.7 cm/sec MV E/A: 1.1 DEBORAH(V,D): 2.2 cm2 LV dP/dt: 597.2 mmHg/s MR max amrita: PA V2 max: TR max amrita: 559.0 cm/sec 81.6 cm/sec 181.5 cm/sec MR max PG: PA max P.7 mmHg TR max P.0 mmHg 13.2 mmHg Left Ventricle The left ventricle is moderately dilated. There is normal left ventricular wall thickness. LV EF is 35%. Left ventricular systolic function is moderately reduced. The inferior and posterior wall akiinetic.The anterior wall not seen in apical 2 chamber views.The mid anterior wall and the rest of the LV augustin are moderately hypokinetic The overall LVEF is 35%. There is no thrombus. Right Ventricle The right ventricle is not well visualized secondary to technical limitations. Atria Right atrium not well visualized secondary to technical limitations. The left atrium is mildly dilated. Mitral Valve There is no evidence of mitral valve prolapse. There is no vegetation seen on the mitral valve. There is no mitral valve stenosis. There is a moderate amount of mitral regurgitation. Aortic Valve The aortic valve is trileaflet. There is no aortic valvular vegetation. There is no aortic valve stenosis. There is no LVOT obstruction. No aortic regurgitation is present. Tricuspid Valve There is no tricuspid stenosis. There is a trace amount of tricuspid regurgitation. Right ventricular systolic pressure is normal. RVSP IS 23 MM OF hG WITH RA MEAN OF 10. Pulmonic Valve There is no pulmonic valvular stenosis. There is no pulmonic valvular regurgitation. Great Vessels The aortic root is normal size. Effusions There is no pericardial effusion. : SWATHI SARABIA > Swathi Sarabia
== END ==
LOC: SP 10:26
PROVIDERS: ATTEND Specialist
DX: R01.1 Cardiac murmur, unspecified (principal)
CPT/HCPCS: 93306

== ENCOUNTER 2018-04-11 15:34 | Day surgery (SDC) | payer MEDICARE, OTHER ==
[~2018-04-11 15:34] MED LIST changes: +DIPHENHYDRAMINE HCL 50 MG/ML VIAL ONE; +EPINEPHRINE INJ 1 MG/10 ML DISP.SYRIN ONE; -FENTANYL CITRATE INJ/PF 100 MCG/2 ML AMPUL ONE; +FLUMAZENIL INJ 0.5 MG/5 ML VIAL ONE; +GLUCAGON,HUMAN RECOMB 1 MG INJ ONE; -MIDAZOLAM 2 MG/2 ML INJ ONE; +NALOXONE HCL INJ/PF 0.4 MG/1 ML SDV ONE; +ONDANSETRON HCL INJ/PF 4 MG/2 ML SDV ONE
[2018-04-11] MEDS: MIDAZOLAM 2 MG/2 ML INJ ONE ×2 (17:08→17:14)
[2018-04-11] MEDS: FENTANYL CITRATE INJ/PF 100 MCG/2 ML AMPUL ONE ×2 (17:10→17:12)
--- NOTE | 2018-04-11 17:44 | Operative Report ---
Operative Report DATE OF SURGERY: 04/11/18 Operative Report: Pre-op diagnosis: Colon cancer screening and reflux disease Post-op diagnosis: 1. Normal EGD 2. Multiple polyps in the ascending, descending, sigmoid colon, and rectum 3. Sigmoid diverticulosis Surgery: Upper endoscopy with biopsy and Colonoscopy and polypectomy Medications: Versed 1.5mg, Fentanyl 50mcg IV push Tissue removed: Antral and gastric body biopsy, multiple colon polyps Procedure: After informed consent obtained from patient, patient's pharynx was sprayed with Hurricane and conscious sedation was achieved. The upper endoscope was then inserted into the esophagus under direct vision and advanced into the stomach and further into the duodenum. Detailed examination of the duodenum, stomach and the esophagus was then performed. A digital rectal examination was performed and this was unremarkable. The colonoscope was inserted into the rectum and advanced to the cecum. The appendiceal orifice and the terminal ileum were both identified. The mucosa was examined into details as the colonoscope was slowly pulled out of the patient. The endoscope was retroflexed in the rectum. Patient tolerated the procedure well. Findings Esophagus: Normal with the Z line at 38 cm Stomach: Normal Duodenum: Normal Cecum: Normal Ascending colon: 7 mm polyp removed with a hot snare Transverse colon: Normal Descending colon: 8 mm sessile polyp removed with a hot snare Sigmoid colon: Three 5-7 mm polyps removed with a hot snare. Multiple diverticuli Rectum: 7 mm polyp removed with a snare. Hemorrhoids were also identified. Plan: Await pathology. Does not need further routine colonoscopy OPERATION: .
[2018-04-11 18:40] VITALS: BP 123/72
== END 2018-04-11 18:50 | disposition home or self-care (01) ==
LOC: END 15:34
PROVIDERS: ATTEND Internal Medicine Gastroenterology
DX: K29.50 Unspecified chronic gastritis without bleeding (principal); D12.4 Benign neoplasm of descending colon; D12.2 Benign neoplasm of ascending colon; D12.7 Benign neoplasm of rectosigmoid junction; Z12.11 Encounter for screening for malignant neoplasm of colon; K21.9 Gastro-esophageal reflux disease without esophagitis; K57.30 Diverticulosis of large intestine without perforation or abscess without bleeding; K64.8 Other hemorrhoids
CPT/HCPCS: 43239; 45385; 82962; 88342 ×2; 88305 ×2; J2250; J3010; J0171; J1200; J1610; J2310; J2405; J3490

== ENCOUNTER 2018-04-17 12:32 | Observation (INO) | payer MEDICARE, OTHER ==
--- NOTE | 2018-04-17 13:10 | ER Document Report ---
ED Medical Screen (RME) - General Chief Complaint: Chest Pain Stated Complaint: CHEST PAIN Time Seen by Provider: 04/17/18 13:08 Notes: RAPID MEDICAL EVALUATION DISCLOSURE I have seen this patient as part of a Rapid Medical Evaluation and, if applicable, placed any initially appropriate orders. The patient will be seen and fully evaluated, including a full history and physical exam, by a provider ( in Main ED or Fast Track) when a room becomes available. 87-year-old male PMH coronary stent acute NH here with complaints of right- sided nonradiating chest pain that started approximately 6 hours ago. He states "I always have shortness of breath" and states it is unchanged from baseline. He did not have any lightheadedness diaphoresis nausea vomiting. He is concerned he may be having another heart attack. He did not take anything today for the symptoms. EXAM CTAB Mildly bradycardic TRAVEL OUTSIDE OF THE [place] IN LAST 30 DAYS: No - Related Data Allergies/Adverse Reactions: hydrocodone [Hydrocodone] Allergy (Intermediate, Verified 04/17/18 13:08) n/v, hives itching oxycodone HCl [From Percocet] Allergy (Intermediate, Verified 04/17/18 13:08) hives itching, n/v Past Medical History - Social History Chew tobacco use (# tins/day): No Frequency of alcohol use: None Drug Abuse: None - Past Medical History Cardiac Medical History: Reports: Hx Coronary Artery Disease, Hx Heart Attack - 1996, 2017, Hx Hypercholesterolemia - meds x 15 years, Hx Hypertension - meds x 15 years Denies: Hx Atrial Fibrillation, Hx Congestive Heart Failure, Hx Peripheral Vascular Disease, Hx Pulmonary Embolism, Hx Heart Murmur Pulmonary Medical History: Reports: Hx COPD, Hx Pneumonia Denies: Hx Asthma, Hx Bronchitis, Hx Respiratory Failure, Hx Sleep Apnea, Hx Tuberculosis Neurological Medical History: Denies: Hx Cerebrovascular Accident, Hx Seizures Endocrine Medical History: Reports: Hx Diabetes Mellitus Type 1. Denies: Hx Graves' Disease, Hx Hyperthyroidism, Hx Hypothyroidism Renal/ Medical History: Denies: Hx Benign Prostatic Hyperplasia, Hx End Stage Renal Disease, Hx Kidney Stones, Hx Peritoneal Dialysis Malignancy Medical History: Denies Hx Leukemia, Denies Hx Lung Cancer GI Medical History: Reports: Hx Gastroesophageal Reflux Disease - meds x 10+ years. Denies: Hx Crohn's Disease, Hx Hepatitis, Hx Hiatal Hernia, Hx Irritable Bowel, Hx Liver Failure, Hx Pancreatitis, Hx Ulcer Musculoskeltal Medical History: Reports Hx Arthritis, Denies Hx Fibromyalgia, Denies Hx Multiple Sclerosis, Denies Hx Muscular Dystrophy Psychiatric Medical History: Denies: Hx Bipolar Disorder, Hx Dementia, Hx Depression, Hx Post Traumatic Stress Disorder, Hx Schizophrenia Traumatic Medical History: Denies: Hx Fractures Infectious Medical History: Denies: Hx Hepatitis, Hx HIV Past Surgical History: Reports: Hx Appendectomy, Hx Cardiac Catheterization, Hx Coronary Artery Bypass Graft - 1996, 2 vessel, Hx Open Heart Surgery - stents CABG. Denies: Hx Bowel Surgery, Hx Cholecystectomy, Hx Colostomy, Hx Gastric Bypass Surgery, Hx Herniorrhaphy, Hx Pacemaker, Hx Tonsillectomy - Immunizations Hx Diphtheria, Pertussis, Tetanus Vaccination: No Physical Exam - Vital signs Vitals: Temp Pulse Resp BP Pulse Ox 98.1 F 48 L 18 100/52 L 94 04/17/18 12:47 04/17/18 12:47 04/17/18 12:47 04/17/18 12:47 04/17/18 12:47 Course - Vital Signs Vital signs: Temp Pulse Resp BP Pulse Ox 98.1 F 48 L 18 100/52 L 94 04/17/18 12:47 04/17/18 12:47 04/17/18 12:47 04/17/18 12:47 04/17/18 12:47
[2018-04-17 13:41] LABS: ABSOLUTE BASOPHILS # (AUTO) 0.1 10^3/uL (0.0-0.2); ABSOLUTE EOSINOPHILS # (AUTO) 0.4 10^3/uL (0.0-0.6); ABSOLUTE LYMPHOCYTES (AUTO) 1.3 10^3/uL (0.5-4.7); ABSOLUTE MONOCYTES (AUTO) 0.8 10^3/uL (0.1-1.4); ABSOLUTE NEUT (AUTO) 6.5 10^3/uL (1.7-8.2); BASOPHILS % (AUTO) 0.8 % (0-2); EOSINOPHILS % (AUTO) 4.4 % (0-6); HEMATOCRIT 37.9 % (37.9-51.0); HEMOGLOBIN 13.1 g/dL (13.5-17.0); LYMPHOCYTES % (AUTO) 14.1 % (13-45); MEAN CORPUSCULAR HEMOGLOBIN 31.3 pg (27.0-33.4); MEAN CORPUSCULAR HGB CONC 34.7 g/dL (32.0-36.0); MEAN CORPUSCULAR VOLUME 90 fl (80-97); MONOCYTES % (AUTO) 8.8 % (3-13); PLATELET COUNT 213 10^3/uL (150-450); RED BLOOD COUNT 4.19 10^6/uL (4.35-5.55); RED CELL DISTRIBUTION WIDTH 13.4 % (11.5-14.0); SEGMENTED NEUTROPHILS % (AUTO) 71.9 % (42-78); TOTAL CELLS COUNTED % (AUTO) 100 %
[2018-04-17 13:55] LABS: ALANINE AMINOTRANSFERASE 22 U/L (21-72); ALBUMIN 3.9 g/dL (3.5-5.0); ALKALINE PHOSPHATASE 57 U/L (38-126); ANION GAP 10 (5-19); ASPARTATE AMINO TRANSFERASE 17 U/L (17-59); BILIRUBIN,DIRECT 0.3 mg/dL (0.0-0.4); BILIRUBIN,TOTAL 1.1 mg/dL (0.2-1.3); BLOOD UREA NITROGEN 14 mg/dL (7-20); CALCIUM 9.8 mg/dL (8.4-10.2); CARBON DIOXIDE 29 mmol/L (22-30); CHLORIDE 102 mmol/L (98-107); GLUCOSE 181 mg/dL (75-110); POTASSIUM 4.5 mmol/L (3.6-5.0); SODIUM 141.3 mmol/L (137-145); TOTAL PROTEIN 7.1 g/dL (6.3-8.2)
--- NOTE | 2018-04-17 14:34 | ER Document Report ---
ED Cardiac - General Chief Complaint: Chest Pain Stated Complaint: CHEST PAIN Time Seen by Provider: 04/17/18 13:08 Notes: The patient is a 87-year-old male, past medical history CAD with stents, CHF, presents with 6 hours of right upper chest pain that is different from his prior chest pain events. He describes it as a squeezing and is intermittent. 3 months ago, he was transferred to [facility] for elevated troponins. According to him, at [facility], his heart cath showed occlusion of some arteries, but his director distribution was unable to place a stent. He followed up with his primary director distribution, Dr. Mckeon, and was told that he should have a pacemaker. He scheduled the appointment for June. Patient denies lightheadedness, new shortness of breath, swelling, fevers, cough, radiation of the pain, back pain, headache, syncope, nausea, vomiting or abdominal pain. TRAVEL OUTSIDE OF THE [place] IN LAST 30 DAYS: No - Related Data Allergies/Adverse Reactions: hydrocodone [Hydrocodone] Allergy (Intermediate, Verified 04/17/18 13:08) n/v, hives itching oxycodone HCl [From Percocet] Allergy (Intermediate, Verified 04/17/18 13:08) hives itching, n/v Past Medical History - General Information source: Patient - Social History Smoking Status: Former Smoker Chew tobacco use (# tins/day): No Frequency of alcohol use: None Drug Abuse: None Family History: Reviewed & Not Pertinent Patient has suicidal ideation: No Patient has homicidal ideation: No - Past Medical History Cardiac Medical History: Reports: Hx Coronary Artery Disease, Hx Heart Attack - 1996, 2017, Hx Hypercholesterolemia - meds x 15 years, Hx Hypertension - meds x 15 years Denies: Hx Atrial Fibrillation, Hx Congestive Heart Failure, Hx Peripheral Vascular Disease, Hx Pulmonary Embolism, Hx Heart Murmur Pulmonary Medical History: Reports: Hx COPD, Hx Pneumonia Denies: Hx Asthma, Hx Bronchitis, Hx Respiratory Failure, Hx Sleep Apnea, Hx Tuberculosis Neurological Medical History: Denies: Hx Cerebrovascular Accident, Hx Seizures Endocrine Medical History: Reports: Hx Diabetes Mellitus Type 1, Hx Diabetes Mellitus Type 2. Denies: Hx Graves' Disease, Hx Hyperthyroidism, Hx Hypothyroidism Renal/ Medical History: Denies: Hx Benign Prostatic Hyperplasia, Hx End Stage Renal Disease, Hx Kidney Stones, Hx Peritoneal Dialysis Malignancy Medical History: Denies Hx Leukemia, Denies Hx Lung Cancer GI Medical History: Reports: Hx Gastroesophageal Reflux Disease - meds x 10+ years. Denies: Hx Crohn's Disease, Hx Hepatitis, Hx Hiatal Hernia, Hx Irritable Bowel, Hx Liver Failure, Hx Pancreatitis, Hx Ulcer Musculoskeltal Medical History: Reports Hx Arthritis, Denies Hx Fibromyalgia, Denies Hx Multiple Sclerosis, Denies Hx Muscular Dystrophy Psychiatric Medical History: Denies: Hx Bipolar Disorder, Hx Dementia, Hx Depression, Hx Post Traumatic Stress Disorder, Hx Schizophrenia Traumatic Medical History: Denies: Hx Fractures Infectious Medical History: Denies: Hx Hepatitis, Hx HIV Past Surgical History: Reports: Hx Appendectomy, Hx Cardiac Catheterization, Hx Coronary Artery Bypass Graft - 1996, 2 vessel, Hx Open Heart Surgery - stents CABG, Hx Orthopedic Surgery - Bilat knees. Denies: Hx Bowel Surgery, Hx Cholecystectomy, Hx Colostomy, Hx Gastric Bypass Surgery, Hx Herniorrhaphy, Hx Pacemaker, Hx Tonsillectomy - Immunizations Hx Diphtheria, Pertussis, Tetanus Vaccination: No Hx Pneumococcal Vaccination: 10/10/13 Review of Systems - Review of Systems Notes: REVIEW OF SYSTEMS: CONSTITUTIONAL: -fevers, -chills EENT: -eye pain, -difficulty swallowing, -nasal congestion CARDIOVASCULAR: +chest pain, -syncope. RESPIRATORY: -cough, +SOB GASTROINTESTINAL: -abdominal pain, -nausea, -vomiting, -diarrhea GENITOURINARY: -dysuria, -hematuria MUSCULOSKELETAL: -back pain, -neck pain SKIN: -rash or skin lesions. HEMATOLOGIC: -easy bruising or bleeding. LYMPHATIC: -swollen, enlarged glands. NEUROLOGICAL: -altered mental status or loss of consciousness, -headache, - neurologic symptoms PSYCHIATRIC: -anxiety, -depression. ALL OTHER SYSTEMS REVIEWED AND NEGATIVE. Physical Exam - Vital signs Vitals: Temp Pulse Resp BP Pulse Ox 98.1 F 48 L 18 100/52 L 94 04/17/18 12:47 04/17/18 12:47 04/17/18 12:47 04/17/18 12:47 04/17/18 12:47 - Notes Notes: PHYSICAL EXAMINATION: GENERAL: Well-appearing, well-nourished and in no acute distress. HEAD: Atraumatic, normocephalic. EYES: Pupils equal round and reactive to light, extraocular movements intact, sclera anicteric, conjunctiva are normal. ENT: nares patent, oropharynx clear without exudates. Moist mucous membranes. NECK: Normal range of motion, supple without lymphadenopathy LUNGS: Breath sounds clear to auscultation bilaterally and equal. No wheezes rales or rhonchi. HEART: Regular rhythm, bradycardia ABDOMEN: Soft, nontender, normoactive bowel sounds. No guarding, no rebound. No masses appreciated. EXTREMITIES: Normal range of motion, no pitting or edema. No cyanosis. NEUROLOGICAL: Cranial nerves grossly intact. Normal speech, normal gait. Normal sensory and motor exams. PSYCH: Normal mood, normal affect. SKIN: Warm, Dry, normal turgor, no rashes or lesions noted. Course - Re-evaluation Re-evalutation: Patient with intermittent right upper chest pain, different from his prior chest pain events. He is found to be in sinus bradycardia in the upper 30s and low 40s. His initial blood pressure was 100/40, but this improved to 110/70 and he does not have any presyncopal symptoms. He is on beta-blockers and suspect his dose is too high. 2 sets of troponins are negative. Spoke to his director distribution, Dr. Mckeon, who will see patient in the office tomorrow if his two troponins are negative. [place], due to his bradycardia, new chest pain and HEART score of 8, patient requires admission for further evaluation and treatment. CXR shows possible infiltrates, but patient does not have a cough, fevers or leukocytosis to suggest pneumonia. Suspect this is pulmonary edema with his history of CHF. 04/17/18 16:[address] Aguilar and he has accepted patient to Tele Obs. - Vital Signs Vital signs: Temp Pulse Resp BP Pulse Ox 98.1 F 48 L 15 119/61 94 04/17/18 12:47 04/17/18 12:47 04/17/18 16:01 04/17/18 16:01 04/17/18 16:01 - Laboratory Result Diagrams: 04/17/18 13:20 04/17/18 13:20 Laboratory results interpreted by me: 04/17/18 04/17/18 13:20 13:20 RBC 4.19 L Hgb 13.1 L Glucose 181 H - Diagnostic Test Radiology reviewed: Image reviewed, Reports reviewed Radiology results interpreted by me: CXR: Mild mixed airspace and interstitial changes in the bilateral mid and lower lung zones may represent infiltrates. - EKG Interpretation by Me EKG shows normal: Sinus rhythm, [place], Intervals, QRS Complexes, ST-T Waves Rate: Bradycardia [place]/QRS: LBBB When compared to previous EKG there are: No significant change Discharge - Discharge Clinical Impression: Bradycardia Chest pain Qualifiers: Chest pain type: unspecified Qualified Code(s): R07.9 - Chest pain, unspecified Condition: Stable Disposition: ADMITTED OBSERVATION Admitting Provider: Hospitalist - [facility] Unit Admitted: Telemetry Referrals: MAJOR CUMMINGS MD [Primary Care Provider] - Follow up as needed
--- NOTE | 2018-04-17 14:39 | RADIOLOGY REPORT (SQ) ---
EXAM DESCRIPTION: CHEST 2 VIEWS COMPLETED DATE/TIME: 04/17/2018 1:35 pm REASON FOR STUDY: CP SOB COMPARISON: 07/26/2016 EXAM PARAMETERS: NUMBER OF VIEWS: two views TECHNIQUE: Digital Frontal and Lateral radiographic views of the chest acquired. RADIATION DOSE: NA LIMITATIONS: none FINDINGS: LUNGS AND PLEURA: Mild mixed airspace and interstitial changes in the mid and lower lung zones, may be on the basis of infiltrates. No pneumothorax or pleural effusion. MEDIASTINUM AND HILAR STRUCTURES: No masses or contour abnormalities. HEART AND VASCULAR STRUCTURES: Stable appearance. No evidence for failure. BONES: No acute findings. HARDWARE: Prior anterior median sternotomy. OTHER: No other significant finding. IMPRESSION: 1 Mild mixed airspace and interstitial changes in the bilateral mid and lower lung zones may represent infiltrates. TECHNICAL DOCUMENTATION: JOB ID: [id number] [employer]- All Rights Reserved Reading location - IP/workstation name: [email or web address]
[2018-04-17] MEDS ORDERED: ACETAMINOPHEN 325 MG TABLET PO PRN (17:20)
[2018-04-17] MEDS ORDERED: ONDANSETRON 4 MG TAB.RAPDIS PO PRN (17:20)
--- NOTE | 2018-04-17 17:20 | PDOC H&P ---
History of Present Illness Admission Date/PCP: MAJOR CUMMINGS MD History of Present Illness: KURT VILLARREAL is a 87 year old male with past medical history of diabetes mellitus, hypertension, coronary artery disease status post coronary artery bypass graft and stent placement, hyperlipidemia and CHF presented with chief complaint of chest pain of 1 day duration. He describes the pain as squeezing type and 5 out of 10 on pain scale and the chest pain is precipitated by movement and changing position. He denies any trauma to his chest. He denies fever, cough, palpitation or diaphoresis. He does not have any nausea vomiting or abdominal pain. He reports this elevated troponin about 3 months ago for which she was [facility] where they did cardiac cath without stent placement. In ER also patient found to have sinus bradycardia in the range of 40-59. Reportedly patient was told by Dr. Mckeon that he should have pacemaker and patient scheduled to have the pacemaker in the coming June. Past Medical History Cardiac Medical History: Reports: Coronary Artery Disease, Myocardial Infarction - 2017, Hyperlipidema - meds x 15 years, Hypertension - meds x 15 years Denies: Atrial Fibrillation, Congestive Heart Failure, Peripheral Vascular Disease, Pulmonary Embolism, Heart Murmur Pulmonary Medical History: Reports: Chronic Obstructive Pulmonary Disease (COPD) , Pneumonia Denies: Asthma, Bronchitis, Respiratory Failure, Sleep Apnea, Tuberculosis Neurological Medical History: Denies: Seizures Endocrine Medical History: Reports: Diabetes Mellitus Type 2 Denies: Hyperthyroidism, Hypothyroidism Renal/ Medical History: Denies: End Stage Renal Disease Malignancy Medical History: Denies: Breast Cancer, Cervical Cancer, Leukemia, Lung Cancer, Ovarian Cancer GI Medical History: Reports: Gastroesophageal Reflux Disease - meds x 10+ years Denies: Crohn's Disease, Hepatitis, Hiatal Hernia Musculoskeltal Medical History: Reports: Arthritis Denies: Fibromyalgia Psychiatric Medical History: Denies: Bipolar Disorder, Dementia, Depression, Post Traumatic Stress Disorder Hematology: Denies: Anemia, Hemophilia, Sickle Cell Disease Infectious Medical History: Denies: HIV Past Surgical History Past Surgical History: Reports: Appendectomy, Cardiac Catheterization, Coronary Artery Bypass Graft - 1996, 2 vessel, Orthopedic Surgery - Bilat knees Denies: Cholecystectomy, Colostomy, Gastric Bypass Surgery, Herniorrhaphy, Pacemaker, Tonsillectomy Social History Smoking Status: Former Smoker Frequency of Alcohol Use: Occasional Hx Recreational Drug Use: No Drugs: None Hx Prescription Drug Abuse: No - Advance Directive Resuscitation Status: Full Code Family History Family History: Reviewed & Not Pertinent, DM, Hypertension Parental Family History Reviewed: Yes Children Family History Reviewed: Yes Sibling(s) Family History Reviewed.: Yes Medication/Allergy Home Medications: Aspirin [Aspirin EC] 81 mg PO DAILY 12/24/17 Clopidogrel Bisulfate [Plavix 75 mg Tablet] 75 mg PO DAILY 12/24/17 Fexofenadine HCl [Leandra] 180 mg PO DAILY 12/24/17 Pantoprazole Sodium [Protonix] 40 mg PO DAILY 12/24/17 Telmisartan [Micardis 40 mg Tablet] 40 mg PO DAILY 12/24/17 Atorvastatin Calcium 40 mg PO QHS 04/11/18 Carvedilol 6.25 mg PO BID 04/11/18 Furosemide 20 mg PO DAILY 04/11/18 Isosorbide Mononitrate [Imdur 30 mg Tablet.er] 30 mg PO DAILY 04/11/18 Lisinopril [Zestril] 2.5 mg PO DAILY 04/11/18 Sitagliptin Phosphate [Januvia] 100 mg PO DAILY 04/11/18 Allergies/Adverse Reactions: hydrocodone [Hydrocodone] Allergy (Intermediate, Verified 04/17/18 13:08) n/v, hives itching oxycodone HCl [From Percocet] Allergy (Intermediate, Verified 04/17/18 13:08) hives itching, n/v Review of Systems Constitutional: ABSENT: chills, fever(s), headache(s), weight gain, weight loss Eyes: ABSENT: visual disturbances Ears: ABSENT: hearing changes Cardiovascular: ABSENT: chest pain, dyspnea on exertion, edema, orthropnea, palpitations Respiratory: ABSENT: cough, hemoptysis Gastrointestinal: ABSENT: abdominal pain, constipation, diarrhea, hematemesis, hematochezia, nausea, vomiting Genitourinary: ABSENT: dysuria, hematuria Musculoskeletal: ABSENT: joint swelling Integumentary: ABSENT: rash, wounds Neurological: ABSENT: abnormal gait, abnormal speech, confusion, dizziness, focal weakness, syncope Psychiatric: ABSENT: anxiety, depression, homidical ideation, suicidal ideation Endocrine: ABSENT: cold intolerance, heat intolerance, polydipsia, polyuria Hematologic/Lymphatic: ABSENT: easy bleeding, easy bruising Physical Exam Vital Signs: Temp Pulse Resp BP Pulse Ox 98.1 F 48 L 17 119/94 H 96 04/17/18 12:47 04/17/18 12:47 04/17/18 17:01 04/17/18 17:01 04/17/18 17:01 Intake & Output 04/16/18 04/17/18 04/18/18 06:59 06:59 06:59 Weight 97.7 kg General appearance: PRESENT: no acute distress, well-developed, well-nourished Head exam: PRESENT: atraumatic, normocephalic Eye exam: PRESENT: conjunctiva pink, EOMI, PERRLA. ABSENT: scleral icterus Ear exam: PRESENT: normal external ear exam Mouth exam: PRESENT: moist, tongue midline Neck exam: ABSENT: carotid bruit, JVD, lymphadenopathy, thyromegaly Respiratory exam: PRESENT: clear to auscultation [place]rey. ABSENT: rales, rhonchi, wheezes Cardiovascular exam: PRESENT: RRR. ABSENT: diastolic murmur, rubs, systolic murmur Pulses: PRESENT: normal dorsalis pedis pul Vascular exam: PRESENT: normal capillary refill GI/Abdominal exam: PRESENT: normal bowel sounds, soft. ABSENT: distended, guarding, mass, organolmegaly, rebound, tenderness Rectal exam: PRESENT: deferred Extremities exam: PRESENT: full ROM. ABSENT: calf tenderness, clubbing, pedal edema Neurological exam: PRESENT: alert, awake, oriented to person, oriented to place , oriented to time, oriented to situation, CN II-XII grossly intact. ABSENT: motor sensory deficit Psychiatric exam: PRESENT: appropriate affect, normal mood. ABSENT: homicidal ideation, suicidal ideation Skin exam: PRESENT: dry, intact, warm. ABSENT: cyanosis, rash Results Laboratory Results: 04/17/18 13:20 04/17/18 13:20 04/17/18 04/17/18 13:20 13:20 WBC 9.0 RBC 4.19 L Hgb 13.1 L Hct 37.9 MCV 90 MCH 31.3 MCHC 34.7 RDW 13.4 Plt Count 213 Seg Neutrophils % 71.9 Lymphocytes % 14.1 Monocytes % 8.8 Eosinophils % 4.4 Basophils % 0.8 Absolute Neutrophils 6.5 Absolute Lymphocytes 1.3 Absolute Monocytes 0.8 Absolute Eosinophils 0.4 Absolute Basophils 0.1 Sodium 141.3 Potassium 4.5 Chloride 102 Carbon Dioxide 29 Anion Gap 10 BUN 14 Creatinine 0.87 Est GFR ( Amer) > 60 Est GFR (Non-Af Amer) > 60 Glucose 181 H Calcium 9.8 Total Bilirubin 1.1 AST 17 ALT 22 Alkaline Phosphatase 57 Total Protein 7.1 Albumin 3.9 04/17/18 04/17/18 13:20 15:58 Troponin I < 0.012 < 0.012 Impressions: Chest X-Ray 04/17/18 13:08 IMPRESSION: 1 Mild mixed airspace and interstitial changes in the bilateral mid and lower lung zones may represent infiltrates. Assessment & Plan - Diagnosis (1) Chest pain Qualifiers: Chest pain type: unspecified Qualified Code(s): R07.9 - Chest pain, unspecified Is this a current diagnosis for this admission?: Yes Plan: Since patient has multiple risk factors he will be admitted for observation. We will trend his cardiac exam repeat EKG and stress test in the morning. (2) Sinus bradycardia Is this a current diagnosis for this admission?: Yes Plan: Patient scheduled for pacemaker placement. (3) Type 2 diabetes mellitus Is this a current diagnosis for this admission?: Yes Plan: We will hold his p.o. medications and will put him on sliding scale. (4) Hypertension Qualifiers: Hypertension type: essential hypertension Qualified Code(s): I10 - Essential (primary) hypertension Is this a current diagnosis for this admission?: Yes Plan: I will hold his AV fadi blockers. (5) Hyperlipidemia Qualifiers: Hyperlipidemia type: unspecified Qualified Code(s): E78.5 - Hyperlipidemia , unspecified Is this a current diagnosis for this admission?: Yes Plan: Continue home statin
[2018-04-17] MEDS ORDERED: INSULIN LISPRO 100 UNIT/ML 3 ML VIAL SUBCUT PRN (17:24)
[2018-04-17] MEDS ORDERED: DEXTROSE 40% GEL 15 GM TUBE PO PRN ×2 (17:24)
[2018-04-17] MEDS ORDERED: GLUCAGON,HUMAN RECOMB 1 MG INJ IM PRN (17:24)
[2018-04-17] MEDS ORDERED: DEXTROSE 50%-WATER 25 GM/50 ML DISP.SYRIN IV PRN ×2 (17:24)
[2018-04-17] MEDS ORDERED: ENOXAPARIN SODIUM INJ 40 MG/0.4 ML DISP.SYRIN SUBCUT ONE (19:00)
--- NOTE | 2018-04-17 20:22 | EKG REPORT ---
SEVERITY:- ABNORMAL ECG - SINUS BRADYCARDIA PROBABLE LEFT ATRIAL ABNORMALITY LEFT BUNDLE BRANCH BLOCK : Confirmed by: Swathi Mckeon MD 17-Apr-2018 20:21:31
[2018-04-18] MEDS ORDERED: LANSOPRAZOLE 30 MG TAB.RAP.DR PO SCH (06:00)
[2018-04-18 06:21] LABS: ANION GAP 10 (5-19); BLOOD UREA NITROGEN 16 mg/dL (7-20); CALCIUM 9.5 mg/dL (8.4-10.2); CARBON DIOXIDE 29 mmol/L (22-30); CHLORIDE 104 mmol/L (98-107); GLUCOSE 155 mg/dL (75-110); POTASSIUM 3.9 mmol/L (3.6-5.0); SODIUM 142.6 mmol/L (137-145)
--- NOTE | 2018-04-18 09:59 | EKG REPORT ---
SEVERITY:- ABNORMAL ECG - SINUS RHYTHM PROBABLE LEFT ATRIAL ABNORMALITY NONSPECIFIC INTRAVENTRICULAR CONDUCTION DELAY MINIMAL ST DEPRESSION, LATERAL LEADS : Confirmed by: Swathi Mckeon MD 18-Apr-2018 09:59:04
[2018-04-18] MEDS ORDERED: ENOXAPARIN SODIUM INJ 40 MG/0.4 ML DISP.SYRIN SUBCUT SCH (10:00)
[2018-04-18 11:16] LABS: FREE T3 3.08 pg/mL (2.77-5.27); FREE T4 (FREE THYROXINE) 1.12 ng/dL (0.78-2.19)
[2018-04-18 11:30] LABS: THYROID STIMULATING HORMONE 1.37 uIU/mL (0.47-4.68)
--- NOTE | 2018-04-18 13:45 | PDOC DISCHARGE SUMMARY ---
General - Admit/Disc Date/PCP Admission Date/Primary Care Provider: 04/17/18 17:29 MAJOR CUMMINGS MD Discharge Date: 04/18/18 - Discharge Diagnosis (1) Bradycardia Is this a current diagnosis for this admission?: Yes (2) Chest pain Is this a current diagnosis for this admission?: Yes (3) Congestive heart failure (CHF) Is this a current diagnosis for this admission?: Yes (4) Coronary artery disease Is this a current diagnosis for this admission?: Yes (5) Hyperlipidemia Is this a current diagnosis for this admission?: Yes (6) Hypertension Is this a current diagnosis for this admission?: Yes (7) Sinus bradycardia Is this a current diagnosis for this admission?: Yes (8) Type 2 diabetes mellitus Is this a current diagnosis for this admission?: Yes (9) Morbid obesity Is this a current diagnosis for this admission?: Yes - Additional Information Resuscitation Status: Full Code Discharge Diet: Diabetic Discharge Activity: Activity As Tolerated Home Medications: Atorvastatin Calcium [Lipitor 40 mg Tablet] 40 mg PO QHS 04/17/18 Carvedilol [Coreg 6.25 mg Tablet] 6.25 mg PO Q12 04/17/18 Clopidogrel Bisulfate [Plavix 75 mg Tablet] 75 mg PO DAILY 04/17/18 Fexofenadine HCl [Leandra Allergy] 180 mg PO DAILY 04/17/18 Furosemide [Lasix 20 mg Tablet] 20 mg PO DAILY 04/17/18 Isosorbide Mononitrate [Isosorbide Mononitrate ER] 15 mg PO Q12 04/17/18 Lisinopril [Prinivil 2.5 mg Tablet] 2.5 mg PO DAILY 04/17/18 Pantoprazole Sodium [Protonix] 40 mg PO DAILY 04/17/18 Sitagliptin Phosphate [Januvia] 100 mg PO DAILY 04/17/18 Telmisartan [Micardis 40 mg Tablet] 40 mg PO DAILY 04/17/18 History of Present Illness History of Present Illness: KURT VILLARREAL is a 87 year old male Hospital Course Hospital Course: The patient was admitted to a telemetry bed from the ED on 04/17/2018. He was ruled out for ND by EKG and enzyme criteria. He went for a stress test, but had chest pain before the study could be completed. EKG was negative for acute ischemia. I consulted the patient's consultant internship, Dr. Ralph. He stated that he felt that the patient's chest pain was musculoskeletal in origin. The patient has known CAD that is not amenable to PTCA. He is for medical management only. Dr. Ralph stated that he will follow the patient as outpatient and evaluate the patient for possible AICD as his LVEF is 35% with known CAD. The patient will be discharged to home in fair condition. Physical Exam Vital Signs: Temp Pulse Resp BP Pulse Ox 98.3 F 60 18 118/54 L 95 04/18/18 11:21 04/18/18 11:21 04/18/18 11:21 04/18/18 11:21 04/18/18 11:21 Intake & Output 04/17/18 04/18/18 04/19/18 06:59 06:59 06:59 Weight 96.9 kg General appearance: PRESENT: no acute distress, morbidly obese, well-developed Head exam: PRESENT: atraumatic, normocephalic Eye exam: PRESENT: conjunctiva pink, EOMI, PERRLA. ABSENT: scleral icterus Ear exam: PRESENT: normal external ear exam Mouth exam: PRESENT: moist, tongue midline Neck exam: ABSENT: carotid bruit, JVD, lymphadenopathy, thyromegaly Respiratory exam: PRESENT: other - No increased work of breathing. No wheezes, rales, or rhonchi. No tactile fremitus.. ABSENT: rales, rhonchi, wheezes Cardiovascular exam: PRESENT: RRR, other - No lateral PMI. No thrills.. ABSENT : diastolic murmur, rubs, systolic murmur Pulses: PRESENT: normal dorsalis pedis pul Vascular exam: PRESENT: normal capillary refill GI/Abdominal exam: PRESENT: normal bowel sounds, soft. ABSENT: distended, guarding, mass, organolmegaly, rebound, tenderness Rectal exam: PRESENT: deferred Extremities exam: PRESENT: full ROM, other - The patient complains that he is unable to raise his arms above his head. He also has chronic pain in his left shoulder.. ABSENT: calf tenderness, clubbing, pedal edema Neurological exam: PRESENT: alert, awake, oriented to person, oriented to place , oriented to time, oriented to situation, CN II-XII grossly intact. ABSENT: motor sensory deficit Psychiatric exam: PRESENT: appropriate affect, normal mood. ABSENT: homicidal ideation, suicidal ideation Skin exam: PRESENT: dry, intact, warm. ABSENT: cyanosis, rash Results Laboratory Results: 04/18/18 05:33 04/18/18 04/18/18 05:33 05:33 Sodium 142.6 Potassium 3.9 Chloride 104 Carbon Dioxide 29 Anion Gap 10 BUN 16 Creatinine 0.82 Est GFR ( Amer) > 60 Est GFR (Non-Af Amer) > 60 Glucose 155 H Calcium 9.5 TSH 1.37 Free T4 1.12 Free T3 pg/mL 3.08 04/17/18 04/18/18 04/18/18 23:17 05:33 09:35 Troponin I < 0.012 < 0.012 < 0.012 Impressions: Chest X-Ray 04/17/18 13:08 IMPRESSION: 1 Mild mixed airspace and interstitial changes in the bilateral mid and lower lung zones may represent infiltrates. Qualifiers - * PATIENT BEING DISCHARGED WITH ANY OF THE FOLLOWING DIAGNOSIS: Heart Failure HF Pt being discharged on ACEI for LVEF less than 40%?: Yes HF Pt being discharged on ARBS for LVEF less than 40%?: No Reason(s) for not prescribing ARBS:: Not indicated - being discharged on LOC I. HF Pt with Afib discharged with Warfarin?: Yes HF Pt discharged on evidence-based Beta Dann:: Yes Plan Discharge Plan: The patient will be discharged to home in fair condition. He will follow up with his PCP in one week and with Dr. Ralph as directed. Time Spent: Greater than 30 Minutes
[2018-04-18 14:03] VITALS: BP 114/50
[2018-04-19] MEDS ORDERED: LISINOPRIL 5 MG TABLET PO SCH (10:00)
== END 2018-04-18 15:43 | disposition home or self-care (01) ==
LOC: ER 12:32 → EH 17:29 → 5 21:37
PROVIDERS: ADMIT Internal Medicine; ATTEND Internal Medicine
DX: R00.1 Bradycardia, unspecified (principal); R07.9 Chest pain, unspecified; I11.0 Hypertensive heart disease with heart failure; I50.9 Heart failure, unspecified; I25.10 Atherosclerotic heart disease of native coronary artery without angina pectoris; E78.5 Hyperlipidemia, unspecified; E11.9 Type 2 diabetes mellitus without complications; E66.01 Morbid (severe) obesity due to excess calories; G89.29 Other chronic pain; M25.512 Pain in left shoulder; I25.2 Old myocardial infarction; M19.90 Unspecified osteoarthritis, unspecified site; I44.7 Left bundle-branch block, unspecified; R06.02 Shortness of breath; K21.9 Gastro-esophageal reflux disease without esophagitis; Z68.29 Body mass index [BMI] 29.0-29.9, adult; Z79.899 Other long term (current) drug therapy; Z79.02 Long term (current) use of antithrombotics/antiplatelets; Z95.5 Presence of coronary angioplasty implant and graft; Z95.1 Presence of aortocoronary bypass graft; Z87.01 Personal history of pneumonia (recurrent); Z90.49 Acquired absence of other specified parts of digestive tract; Z87.891 Personal history of nicotine dependence; Z82.49 Family history of ischemic heart disease and other diseases of the circulatory system; Z79.82 Long term (current) use of aspirin
CPT/HCPCS: 93005 ×2; 99285; 96372; 36415 ×2; 84439; 82962; 84443; 85025; 80048; 80053; 84484 ×2; 84481; 83880; 71046; 93010 ×2; G0378 ×3; J1650 ×2; J3490 ×2

== ENCOUNTER 2018-05-09 03:21 | Emergency (ER) | payer MEDICARE, OTHER ==
[2018-05-09] MEDS ORDERED: NITROGLYCERIN/D5W 50 MG/250 ML RTUINJ IV ONE (03:28)
[2018-05-09 03:37] LABS: VENOUS BLOOD BASE EXCESS -14.1 mmol/L; VENOUS BLOOD HCO3 18.9 mmol/L (20-32)
--- NOTE | 2018-05-09 03:40 | RADIOLOGY REPORT (SQ) ---
EXAM DESCRIPTION: XR CHEST 1 VIEW COMPLETED DATE/TME: 05/09/2018 03:21 CLINICAL HISTORY: 87 years Male, shortness of breath COMPARISON: 7.9.18 NUMBER OF VIEWS/TECHNIQUE: 1/AP FINDINGS: Moderate mixed interstitial and airpace opacities. Sternotomy. Mildly enlarged cardiac silhouette. No pneumothorax. No acute bone defect. IMPRESSION: Moderate mixed interstitial and airpace opacities, worsened. Differential diagnosis includes pulmonary edema/CHF and multifocal pneumonia. Recommend CR/CT surveillance including at 7-12 weeks following initiation of clinically warranted therapy.
[2018-05-09] MEDS ORDERED: FUROSEMIDE INJ/PF 40 MG/4 ML SDV ONE (03:41)
[2018-05-09 03:43] LABS: VENOUS BLOOD PCO2 78.4 mmHg (35-63)
[2018-05-09 03:46] LABS: INTERNATIONAL RATION (INR) 1.06; PROTHROMBIN TIME 14.3 SEC (11.4-15.4)
[2018-05-09 03:58] LABS: ALANINE AMINOTRANSFERASE 21 U/L (21-72); ALBUMIN 4.5 g/dL (3.5-5.0); ALKALINE PHOSPHATASE 80 U/L (38-126); ASPARTATE AMINO TRANSFERASE 25 U/L (17-59); BILIRUBIN,DIRECT 0.3 mg/dL (0.0-0.4); BILIRUBIN,TOTAL 0.9 mg/dL (0.2-1.3); BLOOD UREA NITROGEN 16 mg/dL (7-20); CALCIUM 10.2 mg/dL (8.4-10.2); CREATINE KINASE 64 U/L (55-170); GLUCOSE 331 mg/dL (75-110); POTASSIUM 3.6 mmol/L (3.6-5.0); TOTAL PROTEIN 8.2 g/dL (6.3-8.2)
[2018-05-09 04:03] LABS: CARBON DIOXIDE 19 mmol/L (22-30); CHLORIDE 103 mmol/L (98-107); SODIUM 145.6 mmol/L (137-145)
[2018-05-09 04:05] LABS: ANION GAP 24 (5-19)
[2018-05-09 04:11] LABS: CREATINE KINASE MB 1.68 ng/mL (<4.55); TROPONIN I 0.013 ng/mL
[2018-05-09 04:13] LABS: ABSOLUTE BASOPHILS # (AUTO) 0.1 10^3/uL (0.0-0.2); ABSOLUTE EOSINOPHILS # (AUTO) 0.4 10^3/uL (0.0-0.6); ABSOLUTE LYMPHOCYTES (AUTO) 3.5 10^3/uL (0.5-4.7); ABSOLUTE MONOCYTES (AUTO) 0.6 10^3/uL (0.1-1.4); ABSOLUTE NEUT (AUTO) 5.4 10^3/uL (1.7-8.2); BASOPHILS % (AUTO) 0.6 % (0-2); EOSINOPHILS % (AUTO) 4.1 % (0-6); HEMATOCRIT 43.4 % (37.9-51.0); HEMOGLOBIN 14.7 g/dL (13.5-17.0); MEAN CORPUSCULAR HEMOGLOBIN 31.2 pg (27.0-33.4); MEAN CORPUSCULAR HGB CONC 33.9 g/dL (32.0-36.0); MEAN CORPUSCULAR VOLUME 92 fl (80-97); MONOCYTES % (AUTO) 6.3 % (3-13); PLATELET COUNT 263 10^3/uL (150-450); RED BLOOD COUNT 4.71 10^6/uL (4.35-5.55); RED CELL DISTRIBUTION WIDTH 13.2 % (11.5-14.0); TOTAL CELLS COUNTED % (AUTO) 100 %
[2018-05-09] MEDS ORDERED: ASPIRIN 300 MG SUPP, RECTAL PR ONE (04:16)
--- NOTE | 2018-05-09 04:16 | ER Document Report ---
ED General - General Chief Complaint: Chest Pain Stated Complaint: CHEST PAIN Notes: Patient is an 87-year-old male who presents with complaint of sudden onset difficulty breathing tonight. He said he woke up having a lot of difficulty breathing and a small amount of chest tightness. He refused to come by and once and therefore his drove him here immediately when he arrived he was hypoxic on well-appearing. Patient has a history of coronary disease. He actually just underwent a heart catheter violent 2 weeks ago which showed that he does have a blockage but the lead assembler that he is not a candidate for stent at this time. Patient is on multiple medications including Plavix. says she is unsure if he took his medications today. Patient denies any vomiting. No abdominal pain. He does have history of congestive heart failure. He does have a ejection fraction of 35% on his previous H&P. TRAVEL OUTSIDE OF THE [place] IN LAST 30 DAYS: No - Related Data Allergies/Adverse Reactions: hydrocodone [Hydrocodone] Allergy (Intermediate, Verified 04/17/18 13:08) n/v, hives itching oxycodone HCl [From Percocet] Allergy (Intermediate, Verified 04/17/18 13:08) hives itching, n/v Past Medical History - Social History Smoking Status: Unknown if Ever Smoked Chew tobacco use (# tins/day): No Frequency of alcohol use: None Drug Abuse: None Family History: Reviewed & Not Pertinent, DM, Hypertension Patient has suicidal ideation: No Patient has homicidal ideation: No - Past Medical History Cardiac Medical History: Reports: Hx Coronary Artery Disease, Hx Heart Attack - 1996, 2017, Hx Hypercholesterolemia - meds x 15 years, Hx Hypertension - meds x 15 years Denies: Hx Atrial Fibrillation, Hx Congestive Heart Failure, Hx Peripheral Vascular Disease, Hx Pulmonary Embolism, Hx Heart Murmur Pulmonary Medical History: Reports: Hx COPD, Hx Pneumonia Denies: Hx Asthma, Hx Bronchitis, Hx Respiratory Failure, Hx Sleep Apnea, Hx Tuberculosis Neurological Medical History: Denies: Hx Cerebrovascular Accident, Hx Seizures Endocrine Medical History: Reports: Hx Diabetes Mellitus Type 1, Hx Diabetes Mellitus Type 2. Denies: Hx Graves' Disease, Hx Hyperthyroidism, Hx Hypothyroidism Renal/ Medical History: Denies: Hx Benign Prostatic Hyperplasia, Hx End Stage Renal Disease, Hx Kidney Stones, Hx Peritoneal Dialysis Malignancy Medical History: Denies Hx Leukemia, Denies Hx Lung Cancer GI Medical History: Reports: Hx Gastroesophageal Reflux Disease - meds x 10+ years. Denies: Hx Crohn's Disease, Hx Hepatitis, Hx Hiatal Hernia, Hx Irritable Bowel, Hx Liver Failure, Hx Pancreatitis, Hx Ulcer Musculoskeletal Medical History: Reports Hx Arthritis, Denies Hx Fibromyalgia, Denies Hx Multiple Sclerosis, Denies Hx Muscular Dystrophy Psychiatric Medical History: Denies: Hx Bipolar Disorder, Hx Dementia, Hx Depression, Hx Post Traumatic Stress Disorder, Hx Schizophrenia Traumatic Medical History: Denies: Hx Fractures Infectious Medical History: Denies: Hx Hepatitis, Hx HIV Past Surgical History: Reports: Hx Appendectomy, Hx Cardiac Catheterization, Hx Coronary Artery Bypass Graft - 1996, 2 vessel, Hx Open Heart Surgery - stents CABG, Hx Orthopedic Surgery - Bilat knees. Denies: Hx Bowel Surgery, Hx Cholecystectomy, Hx Colostomy, Hx Gastric Bypass Surgery, Hx Herniorrhaphy, Hx Pacemaker, Hx Tonsillectomy - Immunizations Hx Diphtheria, Pertussis, Tetanus Vaccination: No Hx Pneumococcal Vaccination: 10/10/13 Review of Systems - Review of Systems Notes: My Normal Review Basic REVIEW OF SYSTEMS: CONSTITUTIONAL : Some diaphoresis EENT: Denies eye, ear, throat, or mouth pain or symptoms. Denies nasal or sinus congestion. CARDIOVASCULAR: Chest tightness RESPIRATORY: difficulty breathing breathing. GASTROINTESTINAL: Denies abdominal pain. Denies nausea, vomiting, or diarrhea. GENITOURINARY: Denies difficulty urinating, painful urination, burning, frequency, or blood in urine. MUSCULOSKELETAL: Denies neck or back pain or joint pain or swelling. SKIN: Denies rash or skin lesions. NEUROLOGICAL: Denies altered mental status or loss of consciousness. ALL OTHER SYSTEMS REVIEWED AND NEGATIVE. Physical Exam - Vital signs Vitals: Resp Pulse Ox 34 H 96 05/09/18 03:22 05/09/18 03:22 - Notes Notes: General Appearance: Well nourished, alert, cooperative, severe acute distress, no obvious discomfort. Vitals: reviewed, See vital signs table. Head: no swelling or tenderness to the head Eyes: PERRL, EOMI, Conjuctiva clear Mouth: No decreasd moisture Neck: Supple, no neck tenderness, No thyromegaly Lungs: No wheezing, diffuse rales, No rhonci, moderate accessory muscle use, good air exchange bilaterally. Heart: Tachycardic rate, Regular rythm, No murmur, no rub Abdomen: Normal BS, soft, No rigidity, No abdominal tenderness, No guarding, no rebound, Extremities: strength 5/5 in all extremities, good pulses in all extremities, no swelling or tenderness in the extremities, no edema. Skin: warm, dry, appropriate color, no rash Neuro: speech clear, oriented x 3, normal affect, responds appropriately to questions. Course - Re-evaluation Re-evalutation: 05/09/18 04:10 Patient is a 79-year-old male who is brought in by private vehicle by his . Patient brought in very ill-appearing and working very hard to breathing pale and mottled appearing. His oxygen saturation was 70%. Lung quintero have diffuse rales. He was newly placed on nonrebreather oxygen and BiPAP was brought to room and placed on BiPAP. Skin color quickly improved with the BiPAP. Initial EKG shows an intraventricular conduction delay consistent with what appears to be incomplete left bundle branch block. She does have some concave up ST segment elevation in anterior precordial leads. Does a lot of baseline wander and artifact making some of it difficult to interpret. Patient does have some mild ST segment depression in lead V6. Old EKG for comparison is from April 18, 2018 which also show some ST segment depression in leads V5 and V6 with some mild ST segment elevation in leads V1 and V2. He also has a interventricular conduction delay on his previous EKG. After the patient was placed on oxygen and he is better. His heart rate went from the 130s down to what is now in the 80s. He initially said he had a little bit of chest tightness but says that that is completely gone and he feels much better. Repeat EKG shows similar findings as initial EKG. Again patient currently says he has no chest pain or chest tightness. She started patient on nitro drip. Patient's blood pressure did start to decline therefore nitro drip has been stopped. Patient has Aguirre catheter Lasix has been given. Did consider possible intubation the patient initially however concern was if the patient has not been placed on ventilator he most likely will be very difficult to wean off and may not survive intubation therefore I did give BiPAP a trial and he is doing well on the BiPAP at this time. I want to continue close monitoring to make sure he continues to do okay in the BiPAP. I did not call him ST elevation DE based on the fact that his chest tightness was completely resolved once his oxygenation was improved and also based on that it is not uncommon to see similar concave up ST segment elevation in anterior precordial leads with this type of interventricular conduction delay. 05/09/18 04:15 05/09/18 05:41 Patient has improved greatly on the BiPAP. He is now talking in full sentences and looks very comfortable and says he feels much improved. His chest x-ray does confirm that he has significant mild pulmonary edema. He continues to deny any chest pain. I did call and speak with his lead assembler, Dr. Ralph, who says patient is to be transferred to [facility] as the patient needs an AICD placement. Dr. Ralph does not think that he will be able to care for the patient at our facility. He says that the lead assembler is familiar with the patient is Dr. Dickerson. Patient's heart rate is now 65. Oxygen saturation 96%. Blood pressure is 114/60. I did speak with the cardiology connection fashion coordinator, Nolvia,. She said that she could accept on behalf of Dr. Ellis unless I feel that the patient needs ICU level care. I informed her that patient clinically looks well enough to go to stepdown however he does have a lactic acid of over 10 which I suspect is probably related to the fact that he was hypoxic for a prolonged period time. A side to speak with the ICU attending just to discuss with him to see whether they prefer to keep him in ICU or stepdown unit. I spoke with Dr. Johnson, he requests that I do repeat lactic acid. He says if it is downtrending appropriately this patient clinically continues to look okay then we can place him on stepdown. He says if it is staying the same or uptrending then he will go to ICU. He says he will accept the patient. Once the repeat lactic acid is back I will call back the cardiac connection line to inform them of the result. 05/09/18 05:54 Patient's lactic acid dropped to 3.3. I called back to cardiac connections and insurance that the patient will therefore go to the stepdown unit. The accepting physician will therefore be Dr. Lou. - Vital Signs Vital signs: Temp Pulse Resp BP Pulse Ox 33 H 98/76 L 95 05/09/18 05:46 05/09/18 05:46 05/09/18 05:46 - Laboratory Result Diagrams: 05/09/18 03:50 05/09/18 03:25 Laboratory results interpreted by me: 05/09/18 05/09/18 05/09/18 03:25 03:25 03:25 VBG pH 7.00 L* VBG pCO2 78.4 H* VBG HCO3 18.9 L Sodium 145.6 H Carbon Dioxide 19 L Anion Gap 24 H Glucose 331 H Lactic Acid 10.4 H NT-Pro-B Natriuret Pep Urine Glucose (UA) 05/09/18 05/09/18 05/09/18 03:25 03:30 05:05 VBG pH VBG pCO2 VBG HCO3 Sodium Carbon Dioxide Anion Gap Glucose Lactic Acid 3.3 H NT-Pro-B Natriuret Pep 1830 H Urine Glucose (UA) 50 H - EKG Interpretation by Me Additional EKG results interpreted by me: 05/09/18 04:20 EKG #1 is reviewed and interpreted by me. EKG shows sinus tachycardia with rate of 130 bpm. Patient does have intraventricular conduction delay that looks to be consistent with an early or incomplete left bundle branch block. He does have concave up ST segment elevation leads V2 and V3. He does have some mild ST segment depression in leads V6. ST segment depression is unchanged comparison to previous EKG from April 18, 2018. EKG #2 is reviewed and interpreted by me. EKG shows sinus tachycardia with a rate of 101 bpm. Patient continues to have the same intraventricular conduction delay with some concave up ST segment elevation in leads V2 and V3. Some baseline artifact due to the patient's respiratory pattern. Discharge - Discharge Clinical Impression: Flash pulmonary edema, Lactic acidosis Condition: Stable Disposition: [facility]
[2018-05-09 04:19] LABS: APPEARANCE,URINE CLEAR; BILIRUBIN,URINE NEGATIVE (NEGATIVE); COLOR,URINE STRAW; GLUCOSE, URINE 50 mg/dL (NEGATIVE); KETONES,URINE NEGATIVE (NEGATIVE); LEUKOCYTE ESTERASE,URINE NEGATIVE (NEGATIVE); NITRITE,URINE NEGATIVE (NEGATIVE); PROTEIN,URINE NEGATIVE (NEGATIVE); URINE SPECIFIC GRAVITY 1.004; UROBILINOGEN,URINE NEGATIVE mg/dL (<2.0)
--- NOTE | 2018-05-09 09:25 | EKG REPORT ---
SEVERITY:- ABNORMAL ECG - SINUS TACHYCARDIA PROBABLE LEFT ATRIAL ABNORMALITY NONSPECIFIC INTRAVENTRICULAR CONDUCTION DELAY LVH WITH SECONDARY REPOLARIZATION ABNORMALITY ANTERIOR Q WAVES, POSSIBLY DUE TO LVH : Confirmed by: Debbie Desai 09-May-2018 09:24:17
--- NOTE | 2018-05-09 09:25 | EKG REPORT ---
SEVERITY:- ABNORMAL ECG - SINUS TACHYCARDIA NONSPECIFIC INTRAVENTRICULAR CONDUCTION DELAY CONSIDER LEFT VENTRICULAR HYPERTROPHY ANTERIOR Q WAVES, POSSIBLY DUE TO LVH : Confirmed by: Debbie Desai 09-May-2018 09:24:39
[2018-05-09] MEDS ORDERED: CARVEDILOL 6.25 MG TABLET PO SCH (10:00)
[2018-05-09] MEDS ORDERED: FUROSEMIDE 20 MG TABLET PO SCH (10:00)
[2018-05-09] MEDS ORDERED: SITAGLIPTIN PHOSPHATE 50 MG TABLET PO SCH (10:00)
[2018-05-09] MEDS ORDERED: LOSARTAN POTASSIUM 50 MG TABLET PO SCH (10:00)
[2018-05-09] MEDS ORDERED: (PENDING PHARMACY ID) (Lisinopril [Prinivil 2.5 Mg Tablet] 2.5 MG) PO SCH (10:00)
[2018-05-09] MEDS ORDERED: LISINOPRIL 5 MG TABLET PO SCH (10:00)
[2018-05-09] MEDS ORDERED: (PENDING PHARMACY ID) (Telmisartan [Micardis 40 Mg Tablet] 40 MG) PO SCH (10:00)
[2018-05-09] MEDS ORDERED: CLOPIDOGREL BISULFATE 75 MG TABLET PO SCH (10:00)
[2018-05-09] MEDS ORDERED: ISOSORBIDE MONONITRATE 30 MG TAB.ER.24H PO SCH (10:00)
[2018-05-09 15:05] VITALS: BP 97/56
--- NOTE | 2018-05-09 17:29 | ER Document Report ---
Doctor's Note Notes: 05/09/18 17:29 Pt being flown to [facility]. Still on Bipap -- comfortable. Stable for transfer.
[2018-05-09] MEDS ORDERED: ATORVASTATIN CALCIUM 40 MG TABLET PO SCH (22:00)
[2018-05-10] MEDS ORDERED: LANSOPRAZOLE 30 MG TAB.RAP.DR PO SCH (06:00)
== END 2018-05-09 17:30 | disposition short-term general hospital (02) ==
LOC: ER 03:21
DX: R07.9 Chest pain, unspecified (principal)
CPT/HCPCS: 93005; 99285; 51702; 96375; 96365; 36415; 82553; 82962; 82550; 83605 ×2; 85025; 85610; 85730; 80053; 81001; 84484; 82803; 83880; 71045; 93010; 94660; A9270 ×6; J1940; J3490

== ENCOUNTER 2018-12-10 21:10 | Emergency (ER) | payer MEDICARE, OTHER ==
[2018-12-10] MEDS ORDERED: FUROSEMIDE INJ/PF 20 MG/2 ML SDV IV ONE (21:20)
--- NOTE | 2018-12-10 21:23 | ER Document Report ---
ED General - General Stated Complaint: SHORTNESS OF BREATH Time Seen by Provider: 12/10/18 21:18 Primary Care Provider: MAJOR CUMMINGS MD [Primary Care Provider] - Follow up as needed Cannot obtain history due to: Unstable vital signs Notes: Patient is an 88-year-old male with past medical history of CHF, ejection fraction of 25% status post AICD pacemaker placement, history of coronary artery disease apparently unable to be intervened upon based on cardiac catheterizations in December and April 2018 at [facility], hypertension, hyperlipidemia, presents with shortness of breath. History is limited on initial presentation as patient is on BiPAP, and respiratory distress and unable to provide significant history. Per EMS patient has been having nausea and vomiting for 2 days. Has also been increasingly short of breath. His daughter contacted 911 today due to concerns with patient's breathing pattern. Patient self discontinued all medications 3 days ago for unclear reasons. TRAVEL OUTSIDE OF THE [place] IN LAST 30 DAYS: No - Related Data Allergies/Adverse Reactions: hydrocodone [Hydrocodone] Allergy (Intermediate, Verified 12/10/18 22:13) n/v, hives itching oxycodone HCl [From Percocet] Allergy (Intermediate, Verified 12/10/18 22:13) hives itching, n/v Past Medical History - General Information source: Patient, Emergency Med Personnel - Social History Smoking Status: Former Smoker Frequency of alcohol use: None Drug Abuse: None Lives with: Spouse/Significant other Family History: Reviewed & Not Pertinent, DM, Hypertension - Past Medical History Cardiac Medical History: Reports: Hx Coronary Artery Disease, Hx Heart Attack - 2017, Hx Hypercholesterolemia - meds x 15 years, Hx Hypertension - meds x 15 years Denies: Hx Atrial Fibrillation, Hx Congestive Heart Failure, Hx Peripheral Vascular Disease, Hx Pulmonary Embolism, Hx Heart Murmur Pulmonary Medical History: Reports: Hx COPD, Hx Pneumonia Denies: Hx Asthma, Hx Bronchitis, Hx Respiratory Failure, Hx Sleep Apnea, Hx Tuberculosis Neurological Medical History: Denies: Hx Cerebrovascular Accident, Hx Seizures Endocrine Medical History: Reports: Hx Diabetes Mellitus Type 1, Hx Diabetes Mellitus Type 2. Denies: Hx Graves' Disease, Hx Hyperthyroidism, Hx Hypothyroidism Renal/ Medical History: Denies: Hx Benign Prostatic Hyperplasia, Hx End Stage Renal Disease, Hx Kidney Stones, Hx Peritoneal Dialysis Malignancy Medical History: Denies Hx Leukemia, Denies Hx Lung Cancer GI Medical History: Reports: Hx Gastroesophageal Reflux Disease - meds x 10+ years. Denies: Hx Crohn's Disease, Hx Hepatitis, Hx Hiatal Hernia, Hx Irritable Bowel, Hx Liver Failure, Hx Pancreatitis, Hx Ulcer Musculoskeletal Medical History: Reports Hx Arthritis, Denies Hx Fibromyalgia, Denies Hx Multiple Sclerosis, Denies Hx Muscular Dystrophy Psychiatric Medical History: Denies: Hx Bipolar Disorder, Hx Dementia, Hx Depression, Hx Post Traumatic Stress Disorder, Hx Schizophrenia Traumatic Medical History: Denies: Hx Fractures Infectious Medical History: Denies: Hx Hepatitis, Hx HIV Past Surgical History: Reports: Hx Appendectomy, Hx Cardiac Catheterization, Hx Coronary Artery Bypass Graft - 1996, 2 vessel, Hx Open Heart Surgery - stents CABG, Hx Orthopedic Surgery - Bilat knees. Denies: Hx Bowel Surgery, Hx Cholecystectomy, Hx Colostomy, Hx Gastric Bypass Surgery, Hx Herniorrhaphy, Hx Pacemaker, Hx Tonsillectomy - Immunizations Hx Diphtheria, Pertussis, Tetanus Vaccination: No Hx Pneumococcal Vaccination: 10/10/13 Review of Systems - Review of Systems Notes: Constitutional: Negative for fever. HENT: Negative for sore throat. Eyes: Negative for visual changes. Cardiovascular: Negative for chest pain. Respiratory: Positive for shortness of breath. Gastrointestinal: Positive for nausea and vomiting Genitourinary: Negative for dysuria. Musculoskeletal: Negative for back pain. Skin: Negative for rash. Neurological: Negative for headaches, weakness or numbness. 10 point ROS negative except as marked above and in HPI. Physical Exam - Vital signs Vitals: Temp Pulse Resp BP Pulse Ox 97.9 F 111 H 33 H 109/65 97 12/10/18 21:10 12/10/18 21:10 12/10/18 21:10 12/10/18 21:10 12/10/18 21:10 Interpretation: Tachycardic, Tachypneic Notes: PHYSICAL EXAMINATION: GENERAL: Elderly male, in moderate respiratory distress. HEAD: Atraumatic, normocephalic. EYES: Pupils equal round and reactive to light, extraocular movements intact, sclera anicteric, conjunctiva are normal. ENT: nares patent, oropharynx clear without exudates. Mildly dry mucous membranes. NECK: Normal range of motion, supple without lymphadenopathy LUNGS: Moderate respiratory distress, retractions, rales at the bases bilaterally more dominant on the right. B-lines in all lung quintero again more dominant on the right versus left. HEART: Regular rate and rhythm without murmurs, echocardiogram with global dyskinesia without evidence of pericardial effusion. ABDOMEN: Soft, nontender, normoactive bowel sounds. No guarding, no rebound. No masses appreciated. EXTREMITIES: Normal range of motion, trace edema in the bilateral lower extremities that is equal and symmetric. No cyanosis. NEUROLOGICAL: No focal neurological deficits. Moves all extremities spontaneously and on command. PSYCH: Normal mood, normal affect. SKIN: Warm, Dry, normal turgor, no rashes or lesions noted. Course - Re-evaluation Re-evalutation: 12/10/18 21:21 Patient presents in respiratory distress, initially saturating 80% on room air for EMS. Patient arrived on CPAP, immediately transition to BiPAP. I immediately came to bedside to perform an assessment of this patient. Patient is labored in his breathing, tachypneic into the mid 30s. On BiPAP 40% FiO2 12/8 saturating 98%. He is heaving his chest. He has crackles at the bases bilaterally. Pleural ultrasound shows B-lines bilaterally worse on the right versus the left. Bedside echocardiogram shows global dyskinesia although no evidence of pericardial effusion or tamponade. Patient does have trace edema in the bilateral lower extremities. Appears to be a consistent picture of pulmonary edema secondary to decompensated CHF. Patient has a known EF of 35% based on previous documentation. Patient states that he has not been taking his medications for the past 3 days including furosemide 20 mg daily. An IV has been placed, patient has been given 20 mg of IV furosemide. He will continue on BiPAP. Will obtain labs, chest x-ray and regularly reassess this patient. He is in guarded condition. 12/10/18 21:30 Patient did have an episode of emesis. BiPAP was removed prior to vomiting. Patient was placed on nasal cannula and will hold BiPAP for a few moments to allow him to recover. Patient's saturations do steadily climb down quite rapidly despite 4 L of nasal cannula currently 93%. As soon as the patient's nausea and vomiting have passed we will replace the BiPAP. Patient this point does note that he has been having some nausea and vomiting for the past several days but denies diarrhea stating he has not had a bowel movement in 2 days. Denies abdominal pain. No fever. Chest x-ray does show pulmonary edema pattern. 12/10/18 22:41 Documentation is delayed as I been at this patient's bedside continuously for the past 25 minutes. In summary the patient's picture has become much more complicated. He has lab findings consistent with diabetic ketoacidosis. This is a very difficult management at this time as the patient is likely volume depl ete globally but has associated pulmonary edema requiring positive pressure ventilation. He also has an ejection fraction of less than 35% making volume resuscitation extremely challenging in this context. Patient's blood pressure is also somewhat soft currently 90s systolic. We will initiate a 500 cc LR bolus. Patient's potassium is currently at 4.8 falsely elevated secondary to the ketoacidosis. He has been started on potassium repletion. Insulin infusion at 0.14 units/kg/h has been initiated. Temperature Aguirre catheter will be placed for strict I/O monitoring. Patient's troponin is also markedly elevated at 22 with an elevated BNP suspicious for either demand mediated ischemia or acute [place] in this context. The patient has been started on both aspirin and Lovenox. I we have will contact [facility] where the patient follows for cardiology and request transfer to ICU as patient may also require cardiac catheterization. I have placed a left external jugular IV for additional IV access. We will also obtain a third point of IV access at this time. 12/10/18 22:50 Chest x-ray is been formally read as a right lower lobe pneumonia with associated pleural effusion although I do still believe there is some component of bilateral pulmonary edema as well particular given B-lines noted bilaterally on pleural ultrasound. Levofloxacin has been initiated. 12/10/18 23:11 We have a total of 4 points of IV access at this time. I did discuss this case at length with the hospitalist at [facility], Dr. Jones who declined to take this patient in transfer stating that given that the patient has had 2 cardiac catheterizations in the past 1 year which have showed extensive at herosclerotic lesions which were not amenable to PCI that there is no indication for transfer as the patient would not be a catheterization candidate. I have reviewed this with the family who request that I discussed with [facility] which does seem to be a reasonable option given that they have provided his cardiac catheterizations in the past. Patient remains critically ill I continue to spend the majority of my time at the patient's bedside. 12/10/18 23:18 I have discussed this case with Dr. Russo the hospitalist at this facility who states that he will not accept this patient given that the patient has a troponin of 29 unless the patient is under hospice circumstances. I did discuss with him that the patient has had 2 cardiac catheterizations within the past year which showed non-amenable atherosclerotic disease. I have also placed a call to [facility] and have requested consultation with the inclusion teacher regarding whether or not patient would receive benefit from under going transfer and possible PCI. 12/11/18 00:31 Patient's blood pressure has deteriorated somewhat currently 87/68. I did discuss this case with Dr. Mckeon who has come to the bedside to discuss with the patient and family. I discussed this case at length with the inclusion teacher at [facility] who states that at this time the patient would not be an appropriate candidate for cardiac cath but does state that if all other issues were to resolve the patient my be a candidate. 12/11/18 00:[address] Russo consult on the patient does the patient will require ongoing management while he is waiting for transfer to [facility]. I am waiting a callback from the [facility] intensive care attending for initiation of transfer although I know they do not currently have a bed. Patient blood pressure is normalized currently 108 on 81. Will not start vasopressor agents at this time. 12/11/18 02:01 Patient's blood pressure remains within acceptable ranges without any vasopressor support. I have contacted [facility] on 2 separate occasions as I have not yet heard back from MICU attending to allow for acceptance of the patient to be placed on a wait list. The transfer center did inform me that the patient does not have a bed at this time because there are no current ICU beds. I did inform the transfer center that I understand they do not have ICU beds but that I still need to speak to an attending to establish a transfer of care for when a bed does become available. Dr. Russo has been into the room to evaluate the patient. 12/11/18 02:18 I have been contacted back by the transfer center and they inform me that the patient has been accepted by . Patient remains clinically unchanged. Repeat BMP, venous blood gas are pending. has consulted on the patient. Lactate downtrending. 12/11/18 02:54 Patient's repeat basic metabolic panel shows hyperkalemia as well as no significant improvement of his glucose. I went directly to the bedside to look at the insulin infusion and found to be running at 1.3 units/h. This is not what I ordered which is 0.14 units/kg/h which is 13.3 units of insulin per hour. I have spoken to charge nurse and asked them to please correct this immediately. I have informed of the patient at time of sign out. - Vital Signs Vital signs: Temp Pulse Resp BP Pulse Ox 99.7 F 111 H 32 H 101/64 97 12/11/18 02:11 12/10/18 21:10 12/11/18 02:11 12/11/18 02:11 12/11/18 02:11 - Laboratory Result Diagrams: 12/10/18 21:22 12/11/18 01:15 Laboratory results interpreted by me: 12/10/18 12/10/18 12/10/18 21:22 21:22 21:22 WBC 22.1 H Seg Neuts % (Manual) 90 H Band Neutrophils % 2 L Lymphocytes % (Manual) 4 L Abs Neuts (Manual) 20.3 H VBG pH VBG HCO3 Sodium Potassium Chloride 96 L Carbon Dioxide 17 L Anion Gap 24 H BUN 30 H Creatinine 1.67 H Est GFR ( Amer) 47 L Est GFR (Non-Af Amer) 39 L Glucose 648 H* POC Glucose Lactic Acid AST 197 H NT-Pro-B Natriuret Pep 98770 H Urine Glucose (UA) 12/10/18 12/10/18 12/10/18 21:22 22:32 23:01 WBC Seg Neuts % (Manual) Band Neutrophils % Lymphocytes % (Manual) Abs Neuts (Manual) VBG pH 7.19 L* VBG HCO3 17.0 L Sodium Potassium Chloride Carbon Dioxide Anion Gap BUN Creatinine Est GFR ( Amer) Est GFR (Non-Af Amer) Glucose POC Glucose Lactic Acid 7.7 H AST NT-Pro-B Natriuret Pep Urine Glucose (UA) >=500 H 12/11/18 12/11/18 12/11/18 01:02 01:15 01:15 WBC Seg Neuts % (Manual) Band Neutrophils % Lymphocytes % (Manual) Abs Neuts (Manual) VBG pH VBG HCO3 Sodium 136.6 L Potassium 5.9 H D Chloride Carbon Dioxide Anion Gap BUN 33 H Creatinine 1.93 H Est GFR ( Amer) 40 L Est GFR (Non-Af Amer) 33 L Glucose 618 H* POC Glucose > 550 H* Lactic Acid 5.7 H AST NT-Pro-B Natriuret Pep Urine Glucose (UA) 12/11/18 12/11/18 02:04 02:21 WBC Seg Neuts % (Manual) Band Neutrophils % Lymphocytes % (Manual) Abs Neuts (Manual) VBG pH VBG HCO3 19.2 L Sodium Potassium Chloride Carbon Dioxide Anion Gap BUN Creatinine Est GFR ( Amer) Est GFR (Non-Af Amer) Glucose POC Glucose > 550 H* Lactic Acid AST NT-Pro-B Natriuret Pep Urine Glucose (UA) - Diagnostic Test Radiology reviewed: Image reviewed, Reports reviewed Radiology results interpreted by me: 12/11/18 01:19 Chest x-ray: Pulmonary edema pattern, vascular congestion, possible right lower lobe pneumonia - EKG Interpretation by Me Additional EKG results interpreted by me: 12/10/18 21:23 Atrial sensed ventricularly paced complexes, rate 112. Critical Care Note - Critical Care Note Total time excluding time spent on procedures (mins): 95 Comments: Critical care time spent obtaining history from patient or surrogate, discussions with consultants, development of treatment plan with patient or surrogate, evaluation of patient's response to treatment, examination of patient, ordering and performing treatments and interventions, ordering and review of laboratory studies, re-evaluation of patient's condition, ordering and review of radiographic studies and review of old charts Discharge - Discharge Clinical Impression: Hyperglycemia, Acute respiratory failure with hypoxia, Respiratory distress, NSTEMI (non-ST elevated myocardial infarction) Right lower lobe pneumonia Qualifiers: Pneumonia type: due to unspecified organism Qualified Code(s): J18.1 - Lobar pneumonia, unspecified organism Congestive heart failure Qualifiers: Heart failure type: systolic Heart failure chronicity: acute on chronic Qualified Code(s): I50.23 - Acute on chronic systolic (congestive) heart failure Condition: Critical Disposition: [facility] Referrals: MAJOR CUMMINGS MD [Primary Care Provider] - Follow up as needed
[2018-12-10] MEDS ORDERED: ONDANSETRON HCL INJ/PF 4 MG/2 ML SDV ONE (21:27)
[2018-12-10] MEDS ORDERED: ONDANSETRON HCL INJ/PF 4 MG/2 ML SDV IV ONE (21:30)
[2018-12-10 21:32] LABS: VENOUS BLOOD PCO2 45.5 mmHg (35-63)
[2018-12-10 21:35] LABS: VENOUS BLOOD PH 7.19 (7.30-7.42)
[2018-12-10 21:39] LABS: HEMATOCRIT 46.6 % (37.9-51.0); HEMOGLOBIN 15.7 g/dL (13.5-17.0); MEAN CORPUSCULAR HEMOGLOBIN 31.8 pg (27.0-33.4); MEAN CORPUSCULAR HGB CONC 33.7 g/dL (32.0-36.0); MEAN CORPUSCULAR VOLUME 95 fl (80-97); PLATELET COUNT 281 10^3/uL (150-450); RED BLOOD COUNT 4.93 10^6/uL (4.35-5.55); RED CELL DISTRIBUTION WIDTH 13.6 % (11.5-14.0); WHITE BLOOD COUNT 22.1 10^3/uL (4.0-10.5)
[2018-12-10 21:55] LABS: ALANINE AMINOTRANSFERASE 25 U/L (21-72); ALBUMIN 4.5 g/dL (3.5-5.0); ALKALINE PHOSPHATASE 95 U/L (38-126); ASPARTATE AMINO TRANSFERASE 197 U/L (17-59); BILIRUBIN,DIRECT 0.2 mg/dL (0.0-0.4); BILIRUBIN,TOTAL 1.2 mg/dL (0.2-1.3); BLOOD UREA NITROGEN 30 mg/dL (7-20); CALCIUM 10.1 mg/dL (8.4-10.2); POTASSIUM 4.8 mmol/L (3.6-5.0); TOTAL PROTEIN 7.8 g/dL (6.3-8.2)
[2018-12-10 22:00] LABS: CARBON DIOXIDE 17 mmol/L (22-30); CHLORIDE 96 mmol/L (98-107); SODIUM 137.3 mmol/L (137-145)
[2018-12-10 22:06] LABS: ABSOLUTE LYMPHOCYTES# (MANUAL) 0.9 10^3/uL (0.5-4.7); ABSOLUTE MONOCYTES # (MANUAL) 0.9 10^3/uL (0.1-1.4); ABSOLUTE NEUTROPHILS# (MANUAL) 20.3 10^3/uL (1.7-8.2); BAND NEUTROPHILS % (MANUAL) 2 % (3-5); BASOPHILS % (MANUAL) 0 % (0-2); EOSINOPHILS % (MANUAL) 0 % (0-6); LYMPHOCYTES % (MANUAL) 4 % (13-45); MONOCYTES % (MANUAL) 4 % (3-13); PLATELET COMMENT ADEQUATE; RBC MORPHOLOGY COMMENT NORMO-CYTIC/CHROMIC; SEGMENTED NEUTROPHILS % (MAN) 90 % (42-78); TOTAL CELLS COUNTED 100
[2018-12-10 22:09] LABS: TROPONIN I 29.3 ng/mL
[2018-12-10 22:13] LABS: ANION GAP 24 (5-19)
[2018-12-10 22:14] LABS: GLUCOSE 648 mg/dL (75-110)
[2018-12-10] MEDS ORDERED: RINGERS SOLUTION,LACTATED 500 ML IV ONE (22:23)
[2018-12-10] MEDS ORDERED: ASPIRIN 81 MG TABLET, CHEWABLE PO ONE (22:23)
[2018-12-10] MEDS ORDERED: INSULIN REG, HUMAN 100 UNIT/ML 3 ML VIAL (PYX) IV ONE (22:24)
[2018-12-10] MEDS ORDERED: POTASSI CL 20 MEQ/50 ML RIDER 20 MEQ/50 ML RTUPB IV ONE (22:25)
[2018-12-10] MEDS ORDERED: ENOXAPARIN SODIUM INJ 100 MG/1 ML DISP.SYRIN SUBCUT SCH (22:30)
--- NOTE | 2018-12-10 22:46 | RADIOLOGY REPORT (SQ) ---
EXAM DESCRIPTION: CHEST SINGLE VIEW COMPLETED DATE/TIME: 12/10/2018 9:31 pm REASON FOR STUDY: sob COMPARISON: 04/17/2018 EXAM PARAMETERS: NUMBER OF VIEWS: One view. TECHNIQUE: Single frontal radiographic view of the chest acquired. RADIATION DOSE: NA LIMITATIONS: None. FINDINGS: LUNGS AND PLEURA: Extensive opacity at the right base. Right pleural effusion. Left lung is clear. MEDIASTINUM AND HILAR STRUCTURES: No masses. Contour normal. HEART AND VASCULAR STRUCTURES: Heart enlarged. No overt failure. CABG hardware. BONES: Sternal wires. HARDWARE: Pacemaker. OTHER: No other significant finding. IMPRESSION: Right lower lobe pneumonia. Right pleural effusion. TECHNICAL DOCUMENTATION: JOB ID: [id number] [employer]- All Rights Reserved Reading location - IP/workstation name: [email or web address]
[2018-12-10] MEDS ORDERED: LEVOFLOXACIN 750 MG/D5W RTU 750 MG/150 ML RTUPB IV ONE (22:50)
--- NOTE | 2018-12-10 22:54 | EKG REPORT ---
SEVERITY:- ABNORMAL ECG - VENTRICULAR-PACED COMPLEXES : Confirmed by: Debbie Desai 10-Dec-2018 22:52:11
[2018-12-10 23:24] LABS: APPEARANCE,URINE CLOUDY; BILIRUBIN,URINE NEGATIVE (NEGATIVE); COLOR,URINE YELLOW; GLUCOSE, URINE >=500 mg/dL (NEGATIVE); KETONES,URINE NEGATIVE (NEGATIVE); LEUKOCYTE ESTERASE,URINE NEGATIVE (NEGATIVE); NITRITE,URINE NEGATIVE (NEGATIVE); PROTEIN,URINE NEGATIVE (NEGATIVE); URINE SPECIFIC GRAVITY 1.017; UROBILINOGEN,URINE NEGATIVE mg/dL (<2.0)
[2018-12-11] MEDS ORDERED: RINGERS SOLUTION,LACTATED 500 ML IV ONE (00:40)
[2018-12-11] MEDS ORDERED: NORMAL SALINE 1000 ML 1,000 ML IV ONE (01:10)
[2018-12-11] MEDS ORDERED: ONDANSETRON HCL INJ/PF 4 MG/2 ML SDV ONE ×2 (01:34→04:31)
[2018-12-11] MEDS ORDERED: ONDANSETRON HCL INJ/PF 4 MG/2 ML SDV IV ONE ×2 (01:39→04:47)
[2018-12-11 02:30] LABS: ANION GAP 15 (5-19); BLOOD UREA NITROGEN 33 mg/dL (7-20); CALCIUM 9.5 mg/dL (8.4-10.2); CARBON DIOXIDE 22 mmol/L (22-30); CHLORIDE 100 mmol/L (98-107); SODIUM 136.6 mmol/L (137-145)
[2018-12-11 02:32] LABS: VENOUS BLOOD BASE EXCESS -6.8 mmol/L; VENOUS BLOOD HCO3 19.2 mmol/L (20-32); VENOUS BLOOD PCO2 40.3 mmHg (35-63); VENOUS BLOOD PH 7.3 (7.30-7.42)
[2018-12-11 02:46] LABS: POTASSIUM 5.9 mmol/L (3.6-5.0)
[2018-12-11 02:48] LABS: GLUCOSE 618 mg/dL (75-110)
[2018-12-11] MEDS ORDERED: INSULIN REG, HUMAN 100 UNIT/ML 3 ML VIAL (PYX) IV ONE (03:07)
[2018-12-11 03:42] LABS: ANION GAP 14 (5-19); BLOOD UREA NITROGEN 35 mg/dL (7-20); CALCIUM 9.3 mg/dL (8.4-10.2); CARBON DIOXIDE 23 mmol/L (22-30); CHLORIDE 102 mmol/L (98-107); POTASSIUM 5.2 mmol/L (3.6-5.0); SODIUM 138.8 mmol/L (137-145)
[2018-12-11 03:53] LABS: GLUCOSE 557 mg/dL (75-110)
[2018-12-11] MEDS ORDERED: PANTOPRAZOLE SODIUM 40 MG VIAL IV ONE (04:54)
[2018-12-11] MEDS ORDERED: PANTOPRAZOLE SODIUM 40 MG VIAL IV PRN (04:55)
[2018-12-11] MEDS ORDERED: NORMAL SALINE 500 ML IV PRN (06:30)
--- NOTE | 2018-12-11 06:31 | PDOC CONSULTATION ---
Consultation Consult Date: 12/11/18 Attending physician:: NINI ROBLES Consult reason:: dka History of Present Illness Admission Date/PCP: MAJOR CUMMINGS MD Patient complains of: Shortness of breath History of Present Illness: KURT VILLARREAL is a 88 year old male with a past medical history of diabetes, congestive heart failure with an ejection fraction of 25%, status post AICD pacemaker, coronary artery disease unamenable to intervention following evaluation at [facility] in [place] March 2018. Patient presents with 2 days of shortness of breath nausea and vomiting prompting a call to EMS. He is found to have severe respiratory distress is placed on BiPAP and brought to the emergency room for evaluation. Patient's family state patient has discontinued medications approximately 3 days ago with unclear intent. In the emergency room the patient's found to be in severe respiratory distress with a right lower lobe infiltrate, severe hyperglycemia with diabetic ketoacidosis, hypotension, Gastroccult positive vomit and acute coronary syndrome with trop onin of 29. Patient's CODE STATUS is verified to be full code and patient is accepted for transfer to tertiary care for critical care unavailable at our facility. Patient is in severe respiratory distress but denies chest or abdominal pain Past Medical History Cardiac Medical History: Reports: Coronary Artery Disease, Myocardial Infarction - 2017, Hyperlipidema - meds x 15 years, Hypertension - meds x 15 years Denies: Atrial Fibrillation, Congestive Heart Failure, Peripheral Vascular Disease, Pulmonary Embolism, Heart Murmur Pulmonary Medical History: Reports: Chronic Obstructive Pulmonary Disease (COPD), Pneumonia Denies: Asthma, Bronchitis, Respiratory Failure, Sleep Apnea, Tuberculosis Neurological Medical History: Denies: Seizures Endocrine Medical History: Reports: Diabetes Mellitus Type 1, Diabetes Mellitus Type 2 Denies: Hyperthyroidism, Hypothyroidism Renal/ Medical History: Denies: End Stage Renal Disease Malignancy Medical History: Denies: Breast Cancer, Cervical Cancer, Leukemia, Lung Cancer, Ovarian Cancer GI Medical History: Reports: Gastroesophageal Reflux Disease - meds x 10+ years Denies: Crohn's Disease, Hepatitis, Hiatal Hernia Musculoskeltal Medical History: Reports: Arthritis Denies: Fibromyalgia Psychiatric Medical History: Denies: Bipolar Disorder, Dementia, Depression, Post Traumatic Stress Dis order Hematology: Denies: Anemia, Hemophilia, Sickle Cell Disease Infectious Medical History: Denies: HIV Past Surgical History Past Surgical History: Reports: Appendectomy, Cardiac Catheterization, Coronary Artery Bypass Graft - 1996, 2 vessel, Orthopedic Surgery - Bilat knees Denies: Cholecystectomy, Colostomy, Gastric Bypass Surgery, Herniorrhaphy, Pacemaker, Tonsillectomy Social History Information Source: Patient, Emergency Med Personnel, [facility] Records Lives with: Spouse/Significant other Smoking Status: Former Smoker Frequency of Alcohol Use: Occasional Hx Recreational Drug Use: No Drugs: None Hx Prescription Drug Abuse: No - Advance Directive Resuscitation Status: Full Code Family History Family History: DM, Hypertension Parental Family History Reviewed: Yes Children Family History Reviewed: Yes Sibling(s) Family History Reviewed.: Yes Medication/Allergy Home Medications: Atorvastatin Calcium [Lipitor 40 mg Tablet] 40 mg PO QHS 04/17/18 Clopidogrel Bisulfate [Plavix 75 mg Tablet] 75 mg PO DAILY 04/17/18 Fexofenadine HCl [Leandra Allergy] 180 mg PO DAILY 04/17/18 Furosemide [Lasix 20 mg Tablet] 20 mg PO DAILY 04/17/18 Isosorbide Mononitrate [Isosorbide Mononitrate ER] 15 mg PO DAILY 04/17/18 Pantoprazole Sodium [Protonix] 40 mg PO DAILY 04/17/18 Desonide [Desowen] 1 applic TP DAILYP PRN 05/09/18 Aspirin [Ecotrin] 81 mg PO DAILY 12/10/18 Fluticasone Propionate [Flovent Diskus] 50 mcg IH DAILY 12/10/18 Insulin Glargine,Hum.rec.anlog [Lantus Insulin 100 Unit/1 ml 10 ml] 20 unit SUBCUT QHS 12/10/18 Insulin Lispro [Humalog Kwikpen] 5 unit SQ ASDIR PRN 12/10/18 Ipratropium/Albuterol Sulfate [Combivent Respimat 4 gm Mdi] 1 puff IH TID 12/10/18 Metoprolol Succinate [Toprol Xl] 25 mg PO QHS 12/10/18 Potassium Chloride [Klor-Con M20] 40 meq PO DAILY 12/10/18 Sacubitril/Valsartan [Entresto 24 mg/26 mg Tablet] 1 tab PO BID 12/10/18 Allergies/Adverse Reactions: hydrocodone [Hydrocodone] Allergy (Intermediate, Verified 12/10/18 22:13) n/v, hives itching oxycodone HCl [From Percocet] Allergy (Intermediate, Verified 12/10/18 22:13) hives itching, n/v Review of Systems ROS unobtainable: Due to mental status - In severe respiratory distress Physical Exam Vital Signs: Temp Pulse Resp BP Pulse Ox 99.4 F 111 H 27 H 105/62 98 12/11/18 05:31 12/10/18 21:10 12/11/18 05:31 12/11/18 05:31 12/11/18 05:31 Intake & Output 12/09/18 12/10/18 12/11/18 11:59 11:59 11:59 Intake Total 700 Balance 700 Weight 94.9 kg General appearance: PRESENT: cooperative, hard of hearing, severe distress. ABSENT: no acute distress Head exam: PRESENT: atraumatic, normocephalic Eye exam: PRESENT: conjunctiva pink, EOMI, PERRLA. ABSENT: scleral icterus Ear exam: PRESENT: normal external ear exam Mouth exam: PRESENT: dry mucosa, neck supple. ABSENT: moist Neck exam: ABSENT: carotid bruit, JVD, lymphadenopathy, thyromegaly Respiratory exam: PRESENT: accessory muscle use, crackles, decreased breath sounds, prolonged expiratory phas, rhonchi. ABSENT: chest wall tenderness, clear to auscultation torrey, wheezes Cardiovascular exam: PRESENT: gallop, +S1, +S2, systolic murmur, tachycardia Pulses: PRESENT: normal dorsalis pedis pul Vascular exam: PRESENT: normal capillary refill GI/Abdominal exam: PRESENT: normal bowel sounds, soft. ABSENT: distended, guarding, mass, organolmegaly, rebound, tenderness Rectal exam: PRESENT: deferred Results Laboratory Results: 12/10/18 21:22 12/11/18 03:18 12/10/18 12/10/18 12/10/18 21:22 21:22 21:22 WBC 22.1 H RBC 4.93 Hgb 15.7 Hct 46.6 MCV 95 MCH 31.8 MCHC 33.7 RDW 13.6 Plt Count 281 Seg Neutrophils % Not Reportable Lymphocytes % Not Reportable Monocytes % Not Reportable Eosinophils % Not Reportable Basophils % Not Reportable Absolute Neutrophils Not Reportable Absolute Lymphocytes Not Reportable Absolute Monocytes Not Reportable Absolute Eosinophils Not Reportable Absolute Basophils Not Reportable VBG pH 7.19 L* VBG pCO2 45.5 VBG HCO3 17.0 L VBG Base Excess -11.0 Sodium 137.3 Potassium 4.8 Chloride 96 L Carbon Dioxide 17 L Anion Gap 24 H BUN 30 H Creatinine 1.67 H Est GFR ( Amer) 47 L Est GFR (Non-Af Amer) 39 L Glucose 648 H* Lactic Acid Calcium 10.1 Total Bilirubin 1.2 AST 197 H ALT 25 Alkaline Phosphatase 95 Total Protein 7.8 Albumin 4.5 Urine Color Urine Appearance Urine pH Ur Specific [place] Urine Protein Urine Glucose (UA) Urine Ketones Urine Blood Urine Nitrite Ur Leukocyte Esterase Urine WBC (Auto) Urine RBC (Auto) 12/10/18 12/10/18 12/11/18 22:32 23:01 01:15 WBC RBC Hgb Hct MCV MCH MCHC RDW Plt Count Seg Neutrophils % Lymphocytes % Monocytes % Eosinophils % Basophils % Absolute Neutrophils Absolute Lymphocytes Absolute Monocytes Absolute Eosinophils Absolute Basophils VBG pH VBG pCO2 VBG HCO3 VBG Base Excess Sodium Potassium Chloride Carbon Dioxide Anion Gap BUN Creatinine Est GFR ( Amer) Est GFR (Non-Af Amer) Glucose Lactic Acid 7.7 H 5.7 H Calcium Total Bilirubin AST ALT Alkaline Phosphatase Total Protein Albumin Urine Color YELLOW Urine Appearance CLOUDY Urine pH 5.0 Ur Specific [place] 1.017 Urine Protein NEGATIVE Urine Glucose (UA) >=500 H Urine Ketones NEGATIVE Urine Blood NEGATIVE Urine Nitrite NEGATIVE Ur Leukocyte Esterase NEGATIVE Urine WBC (Auto) 1 Urine RBC (Auto) 0 12/11/18 12/11/18 12/11/18 01:15 02:21 03:18 WBC RBC Hgb Hct MCV MCH MCHC RDW Plt Count Seg Neutrophils % Lymphocytes % Monocytes % Eosinophils % Basophils % Absolute Neutrophils Absolute Lymphocytes Absolute Monocytes Absolute Eosinophils Absolute Basophils VBG pH 7.30 VBG pCO2 40.3 VBG HCO3 19.2 L VBG Base Excess -6.8 Sodium 136.6 L 138.8 Potassium 5.9 H D 5.2 H Chloride 100 102 Carbon Dioxide 22 23 Anion Gap 15 14 BUN 33 H 35 H Creatinine 1.93 H 1.92 H Est GFR ( Amer) 40 L 40 L Est GFR (Non-Af Amer) 33 L 33 L Glucose 618 H* 557 H* Lactic Acid Calcium 9.5 9.3 Total Bilirubin AST ALT Alkaline Phosphatase Total Protein Albumin Urine Color Urine Appearance Urine pH Ur Specific [place] Urine Protein Urine Glucose (UA) Urine Ketones Urine Blood Urine Nitrite Ur Leukocyte Esterase Urine WBC (Auto) Urine RBC (Auto) 12/10/18 21:22 Troponin I 29.300 NT-Pro-B Natriuret Pep 52565 H Impressions: Chest X-Ray 12/10/18 21:20 IMPRESSION: Right lower lobe pneumonia. Right pleural effusion. Assessment & Plan - Diagnosis (1) Right lower lobe pneumonia Qualifiers: Pneumonia type: due to unspecified organism Qualified Code(s): J18.1 - Lobar pneumonia, unspecified organism Is this a current diagnosis for this admission?: Yes Plan: Right lower lobe pneumonia, possible aspiration following vomiting from either DKA or acute coronary syndrome. Empiric antibiotics initiated, supplemental oxygen, BiPAP, follow-up CBC and blood culture (2) GI bleed Is this a current diagnosis for this admission?: Yes Plan: Likely stress gastritis secondary to critical illness. IV Protonix bolus and ordered 72-hour drip, follow-up CBC, consider endoscopy (3) DKA (diabetic ketoacidoses) Is this a current diagnosis for this admission?: Yes Plan: Secondary to noncompliance with medication lifestyle, with nausea and uncontrolled hyperglycemia with supporting labs. Patient will receive IV fluids IV insulin serial chemistries every 6 hours for evaluation for electrolyte repletion. (4) Acute respiratory failure with hypoxia Is this a current diagnosis for this admission?: Yes Plan: Secondary to #1, BiPAP, albuterol and Atrovent (5) Acute non-ST elevation myocardial infarction (NSTEMI) Is this a current diagnosis for this admission?: Yes Plan: Complicated by acute respiratory failure, pneumonia, diabetic ketoacidosis and coronary artery disease unamenable to intervention. Aspirin, heparin initiated, optimize underlying decompensated acute illness. Cardiology consult (6) Sepsis Qualifiers: Sepsis type: sepsis due to unspecified organism Qualified Code(s): A41.9 - Sepsis, unspecified organism Is this a current diagnosis for this admission?: Yes Plan: Secondary to #1 - Time Time Spent: Greater than 70 Minutes - Inpatient Certification Medical Necessity: Need Close Monitoring Due to Risk of Patient Decompensation
--- NOTE | 2018-12-11 08:50 | ER Document Report ---
Doctor's Note Notes: 12/11/18 08:49 patient seen and evaluated and is stable for transportation
[2018-12-11 09:13] VITALS: BP 111/96
== END 2018-12-11 08:49 | disposition short-term general hospital (02) ==
LOC: ER 21:10
DX: J96.01 Acute respiratory failure with hypoxia (principal); E11.10 Type 2 diabetes mellitus with ketoacidosis without coma; I21.4 Non-ST elevation (NSTEMI) myocardial infarction; I11.0 Hypertensive heart disease with heart failure; I50.23 Acute on chronic systolic (congestive) heart failure; J44.0 Chronic obstructive pulmonary disease with (acute) lower respiratory infection; J18.1 Lobar pneumonia, unspecified organism; E87.5 Hyperkalemia; R11.2 Nausea with vomiting, unspecified; I25.10 Atherosclerotic heart disease of native coronary artery without angina pectoris; Z95.810 Presence of automatic (implantable) cardiac defibrillator; Z88.5 Allergy status to narcotic agent; Z87.891 Personal history of nicotine dependence; Z95.5 Presence of coronary angioplasty implant and graft; Z95.1 Presence of aortocoronary bypass graft
CPT/HCPCS: 93005; 96376; 99291; 99292; 96372; 96361; 51702; 96375; 96365; 96366; 96367; 96368; 36415; 87040; 82962; 83605 ×2; 85025; 87077; 80048; 80053; 81001; 84484; 82803; 83880; 71045; 93010; 94660 ×2; A9270 ×3; J1940; C9113; J2405 ×2; J3480; J7030; J7040; J7120; J1650; J1956; 87186; J1815; S0164

== ENCOUNTER → 2019-01-10 | Outpatient (CLI) | payer MEDICARE, OTHER ==
--- NOTE | 2019-01-10 14:53 | RADIOLOGY REPORT (SQ) ---
EXAM DESCRIPTION: CHEST PA/LATERAL COMPLETED DATE/TIME: 01/10/2019 2:40 pm REASON FOR STUDY: LOBAR PNEUMONIA, UNSPECIFIED ORGANISM COMPARISON: 12/10/2018 EXAM PARAMETERS: NUMBER OF VIEWS: two views TECHNIQUE: Digital Frontal and Lateral radiographic views of the chest acquired. RADIATION DOSE: NA LIMITATIONS: none FINDINGS: LUNGS AND PLEURA: There is improved right basilar aeration with persistent patchy opacitie s. Stable chronic interstitial changes throughout both lungs. No large effusion. No pneumothorax. MEDIASTINUM AND HILAR STRUCTURES: No masses or contour abnormalities. HEART AND VASCULAR STRUCTURES: Evidence of prior CABG. Normal heart size. Aortic atherosclerosis. BONES: Median sternotomy changes. No acute findings. HARDWARE: Left-sided cardiac pacer with leads overlying right atrium, right ventricle coronary sinus. OTHER: No other significant finding. IMPRESSION: Improved but persistent patchy right basilar airspace disease. TECHNICAL DOCUMENTATION: JOB ID: [id number] [employer]- All Rights Reserved Reading location - IP/workstation name: [email or web address]
== END ==
LOC: OD 14:28
PROVIDERS: ATTEND Physician Assistant
DX: J18.1 Lobar pneumonia, unspecified organism (principal)
CPT/HCPCS: 71046